=== PATIENT | male | born 2000 | race Caucasian/White ===

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

== ENCOUNTER 2023-11-11 12:09 | Emergency (ER) | payer MEDICAID, OTHER, SELFPAY ==
[2023-11-11 12:23] VITALS: BP 114/72; PULSE 83; RESP 16; TEMP 36.9; O2SAT 99; BMI 18.9
[2023-11-11 12:59] LABS: Add Manual Diff / Slide Review NO; Basophils Absolute Auto 0 /uL (0-100); Basophils Percent Auto 0.5 % (0-2); Eosinophils Absolute Auto 100 /uL (0-450); Eosinophils Percent Auto 0.9 % (2-4); Hematocrit 43.3 % (41-53); Hemoglobin 14.8 g/dL (13.5-17.5); Lymphocytes Absolute Auto 1400 /uL (1100-4500); Lymphocytes Percent Auto 16.5 % (25-40); Mean Corpuscular HGB Conc 34.1 % (30-36); Mean Corpuscular Hemoglobin 32.2 PG (26-34); Mean Corpuscular Volume 94.5 fL (80-100); Monocytes Absolute Auto 600 /uL (0-900); Monocytes Percent Auto 6.9 % (3-14); Neutrophils Absolute Auto 6200 /uL (1500-7000); Neutrophils Percent Auto 75.2 % (50-75); Platelet Count 141 X10^3/uL (150-400); Red Blood Cell Count 4.58 X10^6/uL (4.5-5.9); Red Cell Distribution Width 13.5 % (11.6-14.8); White Blood Cell Count 8.3 X10^3/uL (4.5-11.0)
--- NOTE | 2023-11-11 13:00 | DI.RAD.S_ITS ---
PROCEDURE: XR ABDOMEN 1V INDICATIONS: abd pain TECHNIQUE: One view of the abdomen acquired. COMPARISON: None. FINDINGS: Surgical changes and devices: None. Bowel: Bowel gas pattern is normal. Soft tissues: No suspicious abdominal calcifications. Visualized solid organ contours appear normal in size. Bones: No suspicious bony lesions. IMPRESSION: No acute abnormality. Dictated by: Raffaele Villatoro M.D. on 11/11/2023 at 13:13 Approved by: Raffaele Villatoro M.D. on 11/11/2023 at 13:13
--- NOTE | 2023-11-11 13:02 | ED_ITS ---
HPI - General Adult General Chief complaint: Abdominal Pain Stated complaint: abd pain, vomiting, feeling faint, blood in stool Time Seen by Provider: 11/11/23 12:41 Source: patient Mode of arrival: Ambulatory History of Present Illness HPI narrative: Patient is a 23-year-old male who is here for evaluation of abdominal pain, vomiting, feeling faint, blood in his stool. He states that this has been going on for months now. The has had a diagnosis of IBS. Has also had colonoscopy. Has a has been told that everything was okay. Not on any medicines for his discomfort. He was here because of the continued discomfort in worsening over the past 24 hours. Related Data Previous Rx's Medication Instructions Recorded metoclopramide HCl 10 mg tablet 10 mg PO Q6H PRN nausea and 11/29/21 (Reglan) vomiting #20 tabs Allergies Allergy/AdvReac Type Severity Reaction Status Date / Time No Known Drug Allergies Allergy Verified 11/11/23 12:27 Review of Systems Review of Systems ROS Unobtainable: All systems reviewed & are unremarkable except as noted in HPI and below Patient History Social History Smoking Status: Current every day smoker Smoking Status: Current every day smoker tobacco type: cigarettes alcohol intake frequency: holidays/special occasions only Substance Use Type: marijuana Exam Initial Vital Signs Initial Vital Signs: Vital Signs Temperature 98.4 F 11/11/23 12:23 Pulse Rate 83 11/11/23 12:23 Respiratory Rate 16 11/11/23 12:23 Blood Pressure 114/72 11/11/23 12:23 Pulse Oximetry 99 11/11/23 12:23 Oxygen Delivery Method Room Air 11/11/23 12:23 Const General: cooperative, comfortable and No ill appearing [facility] Head: normal to inspection and normocephalic Resp Effort & Inspection: normal respiratory effort Auscultation: clear to auscultation bilaterally Cardio Rate: regular rate Rhythm: regular rhythm GI Inspection: normal to inspection and non-distended Palpation: soft, No firm and No tender Skin General: no rashes or lesions noted Neuro General: patient alert and patient awake Course Orders Ordered: ED Orders 11/11/23 12:35 Urine Microscopic Stat 11/11/23 12:52 Complete Blood Count AUTO DIFF Stat Comprehensive Metabolic Panel Stat Lipase Stat 11/11/23 13:00 XR abdomen 1V Stat Ondansetron HCl (Ondansetron 4 Mg/2 Ml Inj) 4 mg IV NOW PRN PRN Reason: Nausea And Vomiting Ondansetron HCl (Ondansetron 4 Mg Odt) 4 mg PO NOW PRN PRN Reason: Nausea And Vomiting Vital Signs Vital signs: Vital Signs - 8 hr 11/11/23 12:23 Temperature 98.4 F Pulse Rate 83 Respiratory Rate 16 Blood Pressure 114/72 Pulse Oximetry 99 Oxygen Delivery Method Room Air Medical Decision Making Lab Data Lab results reviewed: Yes I reviewed the patient's lab results. 11/11/23 12:52 11/11/23 12:52 Labs: Lab Results 11/11/23 11/11/23 Range/Units 12:35 12:52 WBC 8.3 (4.5-11.0) X10^3/uL RBC 4.58 (4.5-5.9) X10^6/uL Hgb 14.8 (13.5-17.5) g/dL Hct 43.3 (41-53) % MCV 94.5 (80-100) fL MCH 32.2 (26-34) PG MCHC 34.1 (30-36) % RDW 13.5 (11.6-14.8) % Plt Count 141 L (150-400) X10^3/uL Neut % (Auto) 75.2 H (50-75) % Lymph % (Auto) 16.5 L (25-40) % [place] % (Auto) 6.9 (3-14) % Eos % (Auto) 0.9 L (2-4) % Baso % (Auto) 0.5 (0-2) % Neut # (Auto) 6200 (2913-8033) /uL Lymph # (Auto) 1400 (7553-4367) /uL [place] # (Auto) 600 (0-900) /uL Eos # (Auto) 100 (0-450) /uL Baso # (Auto) 0 (0-100) /uL Sodium 139 (137-145) mmol/L Potassium 4.0 (3.4-5.1) mmol/L Chloride 106 (98-107) mmol/L Carbon Dioxide 24 (22-32) mmol/L BUN 11 (9-20) mg/dL Creatinine 0.82 (0.66-1.25) mg/dL Estimated GFR > 60 (>60) mL/min BUN/Creatinine Ratio 13.4 (6-22) Glucose 107 H (70-100) mg/dL Calcium 9.6 (8.4-10.2) mg/dL Total Bilirubin 1.2 (0.2-1.3) mg/dL AST 21 (17-59) IU/L ALT 15 (<50) IU/L Alkaline Phosphatase 77 (38-126) U/L Total Protein 7.5 (6.3-8.2) g/dL Albumin 4.9 (3.5-5.0) g/dL Globulin 2.6 (1.7-4.1) g/dL Albumin/Globulin Ratio 1.9 (1.0-2.8) Lipase 43 (23-300) U/L Urine RBC None seen (0-5/HPF) Urine WBC None seen (0-5/HPF) Ur Squamous Epith Cells None seen (0-5/HPF) Urine Bacteria None seen (None) Ur Culture Indicated? Cult not indicated Vol Urine Centrifuged 10ml (spun) Urine Dip Bedside Urine Glucose Negative Bedside Urine Bilirubin - Negative Bedside Urine Ketone - Negative Urine Specific [place] 1.005 Bedside Urine Occult Blood +/- Bedside Urine pH 6.0 Bedside Urine Protein - Negative Bedside Urine Urobilinogen - Negative Bedside Urine Nitrite - Negative Bedside Urine Leukocytes - Negative Esterase Point of care testing: Urine Dip Bedside Urine Glucose Negative Bedside Urine Bilirubin - Negative Bedside Urine Ketone - Negative Urine Specific [place] 1.005 Bedside Urine Occult Blood +/- Bedside Urine pH 6.0 Bedside Urine Protein - Negative Bedside Urine Urobilinogen - Negative Bedside Urine Nitrite - Negative Bedside Urine Leukocytes - Negative Esterase Imaging Data Abdominal x-ray: Radiologist's Impression: PROCEDURE: XR ABDOMEN 1V INDICATIONS: abd pain TECHNIQUE: One view of the abdomen acquired. COMPARISON: None. FINDINGS: Surgical changes and devices: None. Bowel: Bowel gas pattern is normal. Soft tissues: No suspicious abdominal calcifications. Visualized solid organ contours appear normal in size. Bones: No suspicious bony lesions. IMPRESSION: No acute abnormality. MDM Narrative Medical decision making narrative: Patient has a benign exam. Negative x-ray, unremarkable labs. Has had symptoms for months if not longer. Has been followed by GI. No indication for advanced imaging today as I have low suspicion for an acute intra-abdominal issue such as appendicitis or bowel obstruction. Advised the patient that it would be best if he contact his primary doctor and also his GI doctor for follow-up. He was given return precautions. Discharge Plan Departure Patient Disposition: Home Clinical Impression: Abdominal pain Instructions: DI for Abdominal Pain-Adult Activity Restrictions/Additional Instructions: Workup here in the emergency department today is very reassuring. I recommend that you contact your primary doctor and your GI doctor for a follow-up. Prescriptions: No Action metoclopramide HCl [Reglan] 10 mg tablet 10 mg PO Q6H PRN (Reason: nausea and vomiting) Qty: 20 0RF Stand Alone Forms: Patient Portal/API
[2023-11-11 13:06] LABS: Urine Volume 10mL (spun)
[2023-11-11 13:07] LABS: Bacteria Urine None Seen; Culture Indicated Urine Cult Not Indicated; RBC Urine None Seen (0-5/HPF); Squamous Epithelial Cell Urine None Seen (0-5/HPF); WBC Urine None Seen (0-5/HPF)
[2023-11-11 13:33] LABS: Alanine Aminotransferase 15 IU/L (<50); Albumin 4.9 g/dL (3.5-5.0); Albumin Globulin Ratio 1.9 (1.0-2.8); Alkaline Phosphatase 77 U/L (38-126); Aspartate Aminotransferase 21 IU/L (17-59); BUN Creatinine Ratio 13.4 (6-22); Bilirubin Total 1.2 mg/dL (0.2-1.3); Blood Urea Nitrogen 11 mg/dL (9-20); Calcium 9.6 mg/dL (8.4-10.2); Carbon Dioxide 24 mmol/L (22-32); Chloride 106 mmol/L (98-107); Estimated Glomerular Filt Rate > 60 mL/min (>60); Globulin 2.6 g/dL (1.7-4.1); Glucose 107 mg/dL (70-100); HEMOLYSIS < 15 (0-50); Lipase 43 U/L (23-300); Sodium 139 mmol/L (137-145); Total Protein 7.5 g/dL (6.3-8.2)
[2023-11-11 14:33] VITALS: BP 119/70; PULSE 62; O2SAT 100
== END 2023-11-11 14:33 | disposition home or self-care (01) ==
PROVIDERS: Emergency Provider Emergency Medicine
DX: R10.9 Unspecified abdominal pain (principal)
CPT/HCPCS: 36415; 74018; 80053; 81003; 81015; 83690; 85025; 99284

== ENCOUNTER 2024-01-20 11:15 | Emergency (ER) | payer OTHER, MEDICAID, SELFPAY ==
[2024-01-20 11:18] VITALS: BP 143/64; PULSE 81; RESP 16; TEMP 37.1; O2SAT 98; BMI 18.6
--- NOTE | 2024-01-20 11:31 | DI.RAD.S_ITS ---
PROCEDURE: XR WRIST LT MIN 3V INDICATIONS: Punched the floor TECHNIQUE: A total of 4 views of the wrist were acquired. COMPARISON: None. FINDINGS: Bones: No fractures or dislocations. No suspicious bony lesions. Soft tissues: No suspicious soft tissue calcifications. IMPRESSION: No acute bony abnormality. Dictated by: Levi Kunz M.D. on 01/20/2024 at 12:10 Approved by: Levi Kunz M.D. on 01/20/2024 at 12:11
--- NOTE | 2024-01-20 11:32 | ED_ITS ---
HPI - Extremity Injury (Upper) <Brenda Overton PA-C - Last Filed: 01/20/24 12:32> General Chief Complaint: Extremity Injury, Upper Stated Complaint: Says he Broke his left hand Time Seen by Provider: 01/20/24 11:29 Source: patient Mode of arrival: Ambulatory History of Present Illness HPI narrative: Patient is a very pleasant 23 year male right-hand dominant who presents to the emergency department with a sudden onset of left hand pain about 20 minutes prior to being seen in the emergency room department after he punched the floor. Patient is tearful, he is emotional, currently he is stating that people sec, he states that his family practice doctor will not get him a therapist. He obviously is going through some emotional issues currently at this point in time. No treatment prior to being seen here in the emergency department. No other physical complaints. Related Data Previous Rx's Medication Instructions Recorded metoclopramide HCl 10 mg tablet 10 mg PO Q6H PRN nausea and 11/29/21 (Reglan) vomiting #20 tabs Allergies Allergy/AdvReac Type Severity Reaction Status Date / Time No Known Drug Allergies Allergy Verified 01/20/24 11:30 Review of Systems <Brenda Overton PA-C - Last Filed: 01/20/24 12:32> Review of Systems Narrative: Negative except as above Musculoskeletal Comments: Left hand and wrist pain. Patient History <Brenda Overton PA-C - Last Filed: 01/20/24 12:32> Social History Smoking Status: Current every day smoker Smoking Status: Current every day smoker tobacco type: cigarettes alcohol intake frequency: holidays/special occasions only Substance Use Type: marijuana Exam <Brenda Overton PA-C - Last Filed: 01/20/24 12:32> Initial Vital Signs Initial Vital Signs: Vital Signs Temperature 98.8 F 01/20/24 11:18 Pulse Rate 81 01/20/24 11:18 Respiratory Rate 16 01/20/24 11:18 Blood Pressure 143/64 H 01/20/24 11:18 Pulse Oximetry 98 01/20/24 11:18 Oxygen Delivery Method Room Air 01/20/24 11:18 Reviewed Const General: cooperative, healthy appearing, comfortable, well developed, well groomed, in distress (Patient extremely emotional) and anxious Eyes General: Yes appearance normal, both eyes and all related structures Pupils: PERRL EOM: EOM intact bilaterally Skin Other: Warm pink and dry, pulses are present, cap refill is preserved. No ecchymosis noted at this time. No soft tissue swelling noted this time. Neuro General: patient alert, patient awake, patient oriented x3, oriented and gait normal Cognition: normal cognition Speech: speech normal Gait: normal gait Motor: muscle tone normal throughout Extrem Other: Lower extremities and right upper extremities range of motion, strength, pulses, cap refill is preserved in the upper and lower extremities. Left upper extremity shoulder humerus elbow and forearm no obvious deformities, no pain, patient states that he has pain in the left wrist, left thumb, and the left pinky and left 5th metacarpal area after striking a floor by punching it. There is no obvious deformity. Cap refill is preserved. Pulses are present. Limited range of motion due to discomfort, pain. No substantial soft tissue swelling is noted. <Felicia Cornejo DO - Last Filed: 01/21/24 08:42> Initial Vital Signs Initial Vital Signs: Vital Signs Temperature 98.8 F 01/20/24 11:18 Pulse Rate 81 01/20/24 11:18 Respiratory Rate 16 01/20/24 11:18 Blood Pressure 143/64 H 01/20/24 11:18 Pulse Oximetry 98 01/20/24 11:18 Oxygen Delivery Method Room Air 01/20/24 11:18 Course <Brenda Overton PA-C - Last Filed: 01/20/24 12:32> Orders Ordered: Discontinued Medications Acetaminophen (Acetaminophen 325 Mg Tablet) 650 mg PO NOW ONE Stop: 01/20/24 11:32 Last Admin: 01/20/24 11:44 Dose: 650 mg Documented By: DANIEL Vital Signs Vital signs: Vital Signs - 8 hr 01/20/24 11:18 Temperature 98.8 F Pulse Rate 81 Respiratory Rate 16 Blood Pressure 143/64 H Pulse Oximetry 98 Oxygen Delivery Method Room Air Reviewed <Felicia Cornejo DO - Last Filed: 01/21/24 08:42> Orders Ordered: Discontinued Medications Acetaminophen (Acetaminophen 325 Mg Tablet) 650 mg PO NOW ONE Stop: 01/20/24 11:32 Last Admin: 01/20/24 11:44 Dose: 650 mg Documented By: DANIEL Vital Signs Vital signs: Vital Signs - 8 hr 01/20/24 11:18 Temperature 98.8 F Pulse Rate 81 Respiratory Rate 16 Blood Pressure 143/64 H Pulse Oximetry 98 Oxygen Delivery Method Room Air MDM - Extremity Injury (Upper) <Brenda Overton PA-C - Last Filed: 01/20/24 12:32> Imaging Data Hand and wrist x-ray left: My Impression: No acute abnormalities are noted on the left hand and left wrist x-rays. No acute fractures are noted, no major soft tissue swelling is noted on x-rays. Extremity x-ray #1: Radiologist's Impression: [address] [address] XRay Report Signed Patient: Byron Contreras MR#: [id number] : 2000 Acct:[id number] Age/Sex: 23 / M Date of Service: 01/20/24 Loc: ED Accession Number: [id number] Procedure: XR hand LT min 3V Ordering Provider: Brenda Overton PA-C PROCEDURE: XR HAND LT MIN 3V INDICATIONS: Punched the floor TECHNIQUE: 3 views of the hand(s) acquired. COMPARISON: None. FINDINGS: Bones: No fractures or dislocations. Carpal bones are normally aligned. No suspicious bony lesions. Soft tissues: No suspicious soft tissue calcifications. IMPRESSION: No acute bony abnormality. Dictated by: Levi Kunz M.D. on 01/20/2024 at 12:11 Approved by: Levi Kunz M.D. on 01/20/2024 at 12:11 Extremity x-ray #2: Radiologist's Impression: [address] [address] XRay Report Signed Patient: Byron Contreras MR#: [id number] : 2000 Acct:[id number] Age/Sex: 23 / M Date of Service: 01/20/24 Loc: ED Accession Number: [id number] Procedure: XR hand LT min 3V Ordering Provider: Brenda Overton PA-C PROCEDURE: XR HAND LT MIN 3V INDICATIONS: Punched the floor TECHNIQUE: 3 views of the hand(s) acquired. COMPARISON: None. FINDINGS: Bones: No fractures or dislocations. Carpal bones are normally aligned. No suspicious bony lesions. Soft tissues: No suspicious soft tissue calcifications. IMPRESSION: No acute bony abnormality. Dictated by: Levi Kunz M.D. on 01/20/2024 at 12:11 Approved by: Levi Kunz M.D. on 01/20/2024 at 12:11 [facility] Narrative Medical decision making narrative: Pleasant 23-year-old male presents to the emergency department left hand and wrist pain after punching a floor. Patient struck the floor due to emotional distress. He currently obviously is going through something, unknown cause of his distress. However the patient did not strike someone which is a good thing, however he did punch a floor. He presents with left hand pain. 650 mg of p.o. Tylenol Portable x-ray left hand Left wrist All x-rays are negative, hand is wrapped in a Jamil wrap, patient is discharged. Differential diagnosis; left hand and wrist contusion, possible fracture, left hand and wrist sprain, strain. Discharge Plan Departure Patient Disposition: Home Clinical Impression: Contusion of hand Qualifiers: Encounter type: initial encounter Laterality: left Qualified Code(s): S60.222A - Contusion of left hand, initial encounter Sprain of hand Qualifiers: Encounter type: initial encounter Laterality: left Qualified Code(s): S63.92XA - Sprain of unspecified part of left wrist and hand, initial encounter Activity Restrictions/Additional Instructions: Elevate, rest, ice, compression. [id number] ibuprofen or Tylenol for discomfort and pain. Prescriptions: No Action metoclopramide HCl [Reglan] 10 mg tablet 10 mg PO Q6H PRN (Reason: nausea and vomiting) Qty: 20 0RF Stand Alone Forms: Patient Portal/API ED Sign-out <Felicia Cornejo DO - Last Filed: 01/21/24 08:42> Cosign ED Attending Cosignature Attestation: I was available for consultation.
[2024-01-20] MEDS: ACETAMINOPHEN 325 MG TABLET 650 MG PO (11:44)
== END 2024-01-20 12:43 | disposition home or self-care (01) ==
PROVIDERS: Emergency Provider Physician Assistant
DX: S60.222A Contusion of left hand, initial encounter (principal); S63.92XA Sprain of unspecified part of left wrist and hand, initial encounter; W22.8XXA Striking against or struck by other objects, initial encounter
CPT/HCPCS: 73110; 73130; 99283

== ENCOUNTER 2024-02-20 10:41 | Emergency (ER) | payer OTHER, MEDICAID, SELFPAY ==
[2024-02-20] VITALS (10 sets, daily range): BP systolic 99–167; BP diastolic 50–64; PULSE 50–84; RESP 11–41; TEMP 36.6; O2SAT 97–100; BMI 17.9
--- NOTE | 2024-02-20 11:00 | EKG_ITS ---
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
--- NOTE | 2024-02-20 12:04 | DI.US.S_ITS ---
PROCEDURE: US ABDOMEN LIMITED INDICATIONS: RUQ pain, ? gallstones TECHNIQUE: Real-time focused scanning was performed of the abdomen, with image documentation. COMPARISON: [facility], CT, CT ABDOMEN PELVIS W CON, 11/29/2021, 11:11. FINDINGS: The liver is normal in size and demonstrates no suspicious lesions. The main portal vein demonstrates normal size and demonstrates normal appearing, hepatopetal flow. No findings of gallstones or sludge are seen. The gallbladder wall is not thickened, measuring 3 mm or less. No specific pericholecystic fluid is seen. The sonographic Hughes sign is negative. There is no biliary dilatation, the common bile duct measures 4 mm. No significant pancreatic abnormality is seen on these images. IMPRESSION: No gallstones. Normal appearing gallbladder. No biliary dilatation. Dictated by: Andrew Ballard M.D. on 02/20/2024 at 12:28 Approved by: Andrew Ballard M.D. on 02/20/2024 at 12:29
[2024-02-20 12:42] LABS: Add Manual Diff / Slide Review NO; Basophils Absolute Auto 0 /uL (0-100); Basophils Percent Auto 0.6 % (0-2); Eosinophils Absolute Auto 200 /uL (0-450); Eosinophils Percent Auto 3.1 % (2-4); Hematocrit 45.5 % (41-53); Hemoglobin 15.6 g/dL (13.5-17.5); Lymphocytes Absolute Auto 1600 /uL (1100-4500); Lymphocytes Percent Auto 21.8 % (25-40); Mean Corpuscular HGB Conc 34.3 % (30-36); Mean Corpuscular Hemoglobin 32.3 PG (26-34); Mean Corpuscular Volume 94.3 fL (80-100); Monocytes Absolute Auto 500 /uL (0-900); Monocytes Percent Auto 7.5 % (3-14); Neutrophils Absolute Auto 4800 /uL (1500-7000); Platelet Count 154 X10^3/uL (150-400); Red Blood Cell Count 4.83 X10^6/uL (4.5-5.9); Red Cell Distribution Width 12.9 % (11.6-14.8); White Blood Cell Count 7.2 X10^3/uL (4.5-11.0)
[2024-02-20 12:52] LABS: Alanine Aminotransferase 14 IU/L (<50); Albumin 4.8 g/dL (3.5-5.0); Albumin Globulin Ratio 1.7 (1.0-2.8); Alkaline Phosphatase 71 U/L (38-126); Aspartate Aminotransferase 19 IU/L (17-59); BUN Creatinine Ratio 13.6 (6-22); Bilirubin Total 1.4 mg/dL (0.2-1.3); Blood Urea Nitrogen 11 mg/dL (9-20); Calcium 9.8 mg/dL (8.4-10.2); Carbon Dioxide 28 mmol/L (22-32); Chloride 105 mmol/L (98-107); Estimated Glomerular Filt Rate > 60 mL/min (>60); Globulin 2.8 g/dL (1.7-4.1); Glucose 94 mg/dL (70-100); HEMOLYSIS < 15 (0-50); Lipase 39 U/L (23-300); Potassium 4.1 mmol/L (3.4-5.1); Sodium 140 mmol/L (137-145); Total Protein 7.6 g/dL (6.3-8.2)
[2024-02-20 13:37] LABS: Bacteria Urine None Seen; Culture Indicated Urine Cult Not Indicated; RBC Urine None Seen (0-5/HPF); Squamous Epithelial Cell Urine None Seen (0-5/HPF); Urine Volume 10mL (spun); WBC Urine None Seen (0-5/HPF)
== END 2024-02-20 13:43 | disposition home or self-care (01) ==
PROVIDERS: Emergency Provider Emergency Medicine
DX: R10.10 Upper abdominal pain, unspecified (principal); R11.2 Nausea with vomiting, unspecified; R11.0 Nausea; R00.1 Bradycardia, unspecified; I49.8 Other specified cardiac arrhythmias
CPT/HCPCS: 36415; 76705; 80053; 81003; 81015; 83690; 85025; 93005; 99282; 99284

== ENCOUNTER 2024-07-01 09:38 | Emergency (ER) | payer OTHER, MEDICAID, SELFPAY ==
[2024-07-01 09:43] VITALS: BP 111/56; PULSE 61; RESP 18; TEMP 36.9; O2SAT 97; BMI 18.1
[2024-07-01 10:42] LABS: Add Manual Diff / Slide Review NO; Basophils Absolute Auto 100 /uL (0-100); Basophils Percent Auto 1.3 % (0-2); Eosinophils Absolute Auto 200 /uL (0-450); Eosinophils Percent Auto 3.2 % (2-4); Hematocrit 43.4 % (41-53); Hemoglobin 14.6 g/dL (13.5-17.5); Lymphocytes Absolute Auto 1700 /uL (1100-4500); Lymphocytes Percent Auto 23.4 % (25-40); Mean Corpuscular HGB Conc 33.5 % (30-36); Mean Corpuscular Hemoglobin 31.5 PG (26-34); Mean Corpuscular Volume 93.8 fL (80-100); Monocytes Absolute Auto 500 /uL (0-900); Monocytes Percent Auto 6.6 % (3-14); Neutrophils Absolute Auto 4900 /uL (1500-7000); Neutrophils Percent Auto 65.5 % (50-75); Platelet Count 162 X10^3/uL (150-400); Red Blood Cell Count 4.63 X10^6/uL (4.5-5.9); Red Cell Distribution Width 13.2 % (11.6-14.8); White Blood Cell Count 7.4 X10^3/uL (4.5-11.0)
[2024-07-01 10:56] LABS: Bacteria Urine Occasional (0-1); Culture Indicated Urine Cult Not Indicated; RBC Urine 0-1/HPF (0-5/HPF); Squamous Epithelial Cell Urine 0-1 /HPF (0-5/HPF); Urine Volume 10mL (spun); WBC Urine 0-1/HPF (0-5/HPF)
--- NOTE | 2024-07-01 11:03 | ED.ABDPAIN ---
HPI - Abdominal Pain General Chief Complaint: Abdominal Pain Stated Complaint: right sided abd pain white stools Time Seen by Provider: 07/01/24 10:53 Source: patient Mode of arrival: Family Vehicle History of Present Illness HPI narrative: 23-year-old male history of prior kidney stones presents with complaint of right-sided abdominal pain for the past 3 days. Patient states he has had nausea although he states that is fairly normal for him he has a prescription for promethazine he takes as needed. Patient states no back or flank pain. He states it feels different than when he had kidney stones in the past. He denies any dysuria, urgency or frequency. No hematuria. Patient notes that he had sort of a whitish greenish stool although when he shows a picture is not mandie colored or white in appearance. Patient has not had any bright red blood or melanotic stools. No diarrhea he describes it as being a little bit softer. Patient states has had prior kidney stones. Has not had any prior surgeries. He was not on any daily prescription medications. Denies any drug allergies. Does vape regularly. Occasional alcohol, uses marijuana denies any other recreational or IV drugs. Related Data Previous Rx's Medication Instructions Recorded metoclopramide HCl 10 mg tablet 10 mg PO Q6H PRN nausea and 11/29/21 (Reglan) vomiting #20 tabs metoclopramide HCl 10 mg tablet 10 mg PO Q6H PRN nausea and 02/20/24 vomiting #30 tabs omeprazole 40 mg capsule,delayed 40 mg PO DAILY #30 caps 02/20/24 release promethazine 25 mg tablet 25 mg PO TID PRN nausea and 02/20/24 vomiting #30 tabs amoxicillin 875 mg-potassium 1 tab PO BID #10 tabs 07/01/24 clavulanate 125 mg tablet Allergies Allergy/AdvReac Type Severity Reaction Status Date / Time No Known Drug Allergies Allergy Verified 07/01/24 09:52 Review of Systems Review of Systems ROS Unobtainable: All systems reviewed & are unremarkable except as noted in HPI and below Patient History Social History details: lives with parents household members: family Smoking Status: Current every day smoker substance use type: marijuana Smoking Status: Current every day smoker tobacco type: cigarettes and vaping alcohol intake frequency: holidays/special occasions only Exam Narrative Exam Narrative: GENERAL: Alert and oriented x three, tall, thin male in mild distress HEENT: Head normocephalic, atraumatic, EOMI, pupils reactive, face symmetric, moist mucous membranes NECK: Supple, full range of motion CARDIOVASCULAR: Regular rate and rhythm without murmurs, rubs or gallops. RESPIRATORY: Breath sounds equal bilaterally, no wheezes rales or rhonchi. ABDOMEN: Soft, positive for right lower quadrant pain. Normoactive bowel sounds all 4 quadrants. No guarding or rebound, rigidity, no mass, pulsatile mass or bruit : No CVA tenderness bilaterally EXTREMITIES: Normal range of motion, no clubbing or edema. Neurovascularly intact NEUROLOGICAL: Cranial nerves II through XII grossly intact. Moving all extremities SKIN: Warm, dry, no petechiae, no rashes or lesions. Initial Vital Signs Initial Vital Signs: Vital Signs Temperature 98.4 F 07/01/24 09:43 Pulse Rate 61 07/01/24 09:43 Respiratory Rate 18 07/01/24 09:43 Blood Pressure 111/56 L 07/01/24 09:43 Pulse Oximetry 97 07/01/24 09:43 Oxygen Delivery Method Room Air 07/01/24 09:43 Course Orders Ordered: ED Orders 07/01/24 10:00 GI Panel (Film Array) Stat Urine Microscopic Stat 07/01/24 10:30 Complete Blood Count AUTO DIFF Stat Comprehensive Metabolic Panel Stat Lipase Stat 07/01/24 11:22 Urinalysis Screen (Dip Only) Stat 07/01/24 11:30 US abdomen limited Stat Discontinued Medications Piperacillin Sod/Tazobactam (Sod 4.5 gm/ Sodium Chloride) 100 mls @ 200 mls/hr IV NOW ONE Stop: 07/01/24 12:28 Last Admin: 07/01/24 12:43 Dose: 200 mls/hr Documented By: Ondansetron HCl (Ondansetron 4 Mg/2 Ml Inj) 4 mg IV NOW PRN PRN Reason: Nausea And Vomiting Ondansetron HCl (Ondansetron 4 Mg Odt) 4 mg PO NOW PRN PRN Reason: Nausea And Vomiting Vital Signs Vital signs: Vital Signs - 8 hr 07/01/24 12:17 07/01/24 13:00 Temperature 98.4 F Pulse Rate 69 66 Respiratory Rate 16 16 Blood Pressure 125/78 132/78 Pulse Oximetry 98 98 Oxygen Delivery Method Room Air Room Air MDM - Abdominal Pain Lab Data 07/01/24 10:30 07/01/24 10:30 Labs: Lab Results 07/01/24 07/01/24 Range/Units 10:00 10:30 WBC 7.4 (4.5-11.0) X10^3/uL RBC 4.63 (4.5-5.9) X10^6/uL Hgb 14.6 (13.5-17.5) g/dL Hct 43.4 (41-53) % MCV 93.8 (80-100) fL MCH 31.5 (26-34) PG MCHC 33.5 (30-36) % RDW 13.2 (11.6-14.8) % Plt Count 162 (150-400) X10^3/uL Neut % (Auto) 65.5 (50-75) % Lymph % (Auto) 23.4 L (25-40) % [place] % (Auto) 6.6 (3-14) % Eos % (Auto) 3.2 (2-4) % Baso % (Auto) 1.3 (0-2) % Neut # (Auto) 4900 (1965-2140) /uL Lymph # (Auto) 1700 (3613-2285) /uL [place] # (Auto) 500 (0-900) /uL Eos # (Auto) 200 (0-450) /uL Baso # (Auto) 100 (0-100) /uL Sodium 139 (137-145) mmol/L Potassium 4.2 (3.4-5.1) mmol/L Chloride 103 (98-107) mmol/L Carbon Dioxide 27 (22-32) mmol/L BUN 11 (9-20) mg/dL Creatinine 0.87 (0.66-1.25) mg/dL Estimated GFR > 60 (>60) mL/min BUN/Creatinine Ratio 12.6 (6-22) Glucose 107 H (70-100) mg/dL Calcium 9.4 (8.4-10.2) mg/dL Total Bilirubin 0.8 (0.2-1.3) mg/dL AST 23 (17-59) IU/L ALT 16 (<50) IU/L Alkaline Phosphatase 66 (38-126) U/L Total Protein 7.8 (6.3-8.2) g/dL Albumin 4.9 (3.5-5.0) g/dL Globulin 2.9 (1.7-4.1) g/dL Albumin/Globulin Ratio 1.7 (1.0-2.8) Lipase 61 (23-300) U/L Urine Color Yellow Urine Appearance Clear Urine pH 7.0 (4.5-8.0) Ur Specific [place] <=1.005 (1.000-1.035) Urine Protein Negative (Negative) Urine Glucose (UA) Negative (Negative) g/dL Urine Ketones Negative (NEGATIVE) Urine Occult Blood Negative (Negative) Urine Nitrate Negative (Negative) Urine Bilirubin Negative (NEGATIVE) Urine Urobilinogen 0.2 (0.2) E.U./dL Ur Leukocyte Esterase Negative (NEGATIVE) Urine RBC 0-1/hpf (0-5/HPF) Urine WBC 0-1/hpf (0-5/HPF) Ur Squamous Epith Cells 0-1 /hpf (0-5/HPF) Urine Bacteria Occasional (0-1) (None) Ur Culture Indicated? Cult not indicated Vol Urine Centrifuged 10ml (spun) Stl C. cayetanensis PCR Not detected (Not Detect) Stool Rotavirus (PCR) Not detected (Not Detect) Stool Adenovirus (PCR) Not detected (Not Detect) Stool Astrovirus (PCR) Not detected (Not Detect) Stool Cryptosporidium PCR Not detected (Not Detect) Stl E.coli Shiga Tox PCR Not detected (Not Detect) St Sh/Enteroin Ecoli PCR Not detected (Not Detect) Stl Enterotoxigenic E PCR Not detected (Not Detect) Stool EPEC (PCR) Not detected (Not Detect) Stl E. histolytica PCR Not detected (Not Detect) Stool Giardia Lamblia PCR Not detected (Not Detect) Stool Sapovirus (PCR) Not detected (Not Detect) Stl P. shigelloides PCR Not detected (Not Detect) St Y.enterocolitica PCR Not detected (Not Detect) Stool Vibrio (PCR) Not detected (Not Detect) Stl Vibrio cholerae PCR Not detected (Not Detect) Stl Enteroaggr Ecoli PCR Not detected (Not Detect) Stl Norovirus GI/GII PCR Not detected (Not Detect) Campylobacter (PCR) Not detected (Not Detect) C. difficile Tox (PCR) Not detected (Not Detect) Salmonella (PCR) Not detected (Not Detect) MDM Narrative Medical decision making narrative: 23 year old male with complaint of right sided abdominal pain, on exam patient is tender if RLQ. Discussed labs pending, urine is negative. Discussed will obtain US to rule out appendicitis. If unable to visualize will obtain CT imaging. Labs show normal white count, hemoglobin and platelets. Chemistries CA appropriate glucose is 127 LFTs are negative lipase is 61. Urine shows 1 RBC 1 WBC 1 squamous 1 bacteria. urine dip is negative. GI panel is negative. abd US prelim report is positive for appendicitis. Noncompressible blind ending tubular structure with bowel signature overlying the iliac vessels measures 7 mm in diameter wall thickness of 2 mm in intraluminal fluid depth of 2.8 mm with a intraluminal appendicolith. No associated right lower quadrant lymphadenopathy or free fluid no echogenic fat present. Findings are equivocal for appendicitis although the intraluminal fluid depth and appendicolith are abnormal and correlates with the area of patient's pain Patient given zosyn for suspected appendicitis. Patient is NPO. Call out to Dr. Antonio, general surgery @ [phone]. He reviewed images, does not wish for CT. Asks if we can speak with the patient if they would like to have their appendix removed Recontact @ [phone], patient states that he would like to talk with Dr. Antonio after we reviewed that his imaging were somewhat equivocal but there are concerns for appendicitis. Patient states he would like to talk to Dr. Antonio about having his appendix out. Dr. Antonio saw patient in the department. After discussion with the patient decision is made to hold off on surgery. Recommends coverage with Augmentin or cephalexin plus Flagyl for 5 days with return precautions for the patient. Reviewed all of this with the patient. Discussed return precautions all questions answered. Discharge Plan Departure Patient Disposition: Home Clinical Impression: Abdominal pain, acute, right lower quadrant, Appendicolith Instructions: DI for Appendicitis -- Adult Activity Restrictions/Additional Instructions: Your workup today showed some changes consistent with a appendicitis but your imaging was equivocal. You met with the general surgeon and after discussion decided not to surgical treatment for potential appendicitis. Take oral antibiotics until completed. [facility] in [place]. You can take acetaminophen and/or ibuprofen as needed for pain. Please return for fevers, rapidly worsening pain, vomiting, black or bloody stools, lightheadedness or passing out or other new or concerning changes. Prescriptions: New amoxicillin-pot clavulanate 875-125 mg tablet 1 tab PO BID Qty: 10 0RF No Action metoclopramide HCl [Reglan] 10 mg tablet 10 mg PO Q6H PRN (Reason: nausea and vomiting) Qty: 20 0RF omeprazole 40 mg capsule,delayed release(DR/EC) 40 mg PO DAILY Qty: 30 0RF metoclopramide HCl 10 mg tablet 10 mg PO Q6H PRN (Reason: nausea and vomiting) Qty: 30 0RF promethazine 25 mg tablet 25 mg PO TID PRN (Reason: nausea and vomiting) Qty: 30 0RF Referrals: Zach Antonio MD [Physician] - Stand Alone Forms: Patient Portal/API/Survey
[2024-07-01 11:25] LABS: Alanine Aminotransferase 16 IU/L (<50); Albumin 4.9 g/dL (3.5-5.0); Albumin Globulin Ratio 1.7 (1.0-2.8); Alkaline Phosphatase 66 U/L (38-126); Aspartate Aminotransferase 23 IU/L (17-59); BUN Creatinine Ratio 12.6 (6-22); Bilirubin Total 0.8 mg/dL (0.2-1.3); Blood Urea Nitrogen 11 mg/dL (9-20); Calcium 9.4 mg/dL (8.4-10.2); Carbon Dioxide 27 mmol/L (22-32); Chloride 103 mmol/L (98-107); Estimated Glomerular Filt Rate > 60 mL/min (>60); Globulin 2.9 g/dL (1.7-4.1); Glucose 107 mg/dL (70-100); HEMOLYSIS 15 (0-50); Lipase 61 U/L (23-300); Potassium 4.2 mmol/L (3.4-5.1); Sodium 139 mmol/L (137-145); Total Protein 7.8 g/dL (6.3-8.2)
--- NOTE | 2024-07-01 11:30 | DI.US.S_ITS ---
PROCEDURE: US ABDOMEN LIMITED INDICATIONS: RLQ pain, appy? TECHNIQUE: Real-time scanning was performed of the abdominal and retroperitoneal organs, with image documentation. COMPARISON: [facility], US, US ABDOMEN LIMITED, 02/20/2024, 12:40. FINDINGS: Targeted sonography of the right lower quadrant demonstrates a noncompressible blind-ending tubular structure with bowel signature overlying the iliac vessels. This structure measures 7 mm in diameter with a wall thickness of 2 mm in intraluminal fluid depth of 2.8 mm. There is an intraluminal appendicolith. There is no associated right lower quadrant lymphadenopathy or free fluid. No echogenic fat is present. IMPRESSION: Findings equivocal for appendicitis. The appendix is not significantly dilated and there are no secondary signs of appendicitis, but the intraluminal fluid depth and appendicolith are abnormal and this area correlates with the patient's pain. Dictated by: Dione Sanchez M.D. on 07/01/2024 at 11:33 Approved by: Dione Sanchez M.D. on 07/01/2024 at 11:40
[2024-07-01 11:33] LABS: Adenovirus F 40/41 Not Detected (Not Detect); Astrovirus Not Detected (Not Detect); Campylobacter Not Detected (Not Detect); Clostridium difficile toxin AB Not Detected (Not Detect); Cryptosporidium Not Detected (Not Detect); Cyclospora cayetanensis Not Detected (Not Detect); Entamoeba histolytica Not Detected (Not Detect); Enteroaggregative E.coli Not Detected (Not Detect); Enteropathogenic E.coli Not Detected (Not Detect); Enterotoxigenic E.coli It/st Not Detected (Not Detect); Giardia lamblia Not Detected (Not Detect); Norovirus GI/GII Not Detected (Not Detect); Plesiomonsa shigelloides Not Detected (Not Detect); Rotavirus A Not Detected (Not Detect); Salmonella Not Detected (Not Detect); Sapovirus Not Detected (Not Detect); Shiga-like toxin-prod E.coli Not Detected (Not Detect); Shigella/Enteroinvasive E.coli Not Detected (Not Detect); Vibrio Not Detected (Not Detect); Vibrio cholerae Not Detected (Not Detect); Yersinia enterocolitica Not Detected (Not Detect)
[2024-07-01 11:48] LABS: Appearance Urine UA Clear; Color Urine UA YELLOW; Specific Gravity Urine UA <=1.005 (1.000-1.035)
[2024-07-01 11:49] LABS: Bilirubin Urine UA NEGATIVE (NEGATIVE); Glucose Urine UA NEGATIVE (Negative); Ketones Urine UA NEGATIVE (NEGATIVE); Leukocyte Esterase Urine UA NEGATIVE (NEGATIVE); Nitrite Urine UA NEGATIVE (Negative); Occult Blood Urine UA NEGATIVE (Negative); Protein Urine UA Negative (Negative); Urobilinogen Urine UA 0.2 E.U./dL (0.2)
[2024-07-01 12:17] VITALS: BP 125/78; PULSE 69; RESP 16; O2SAT 98
[2024-07-01] MEDS: PIPERACILLIN/TAZO 4.5 GM in SODIUM CHLORIDE 0.9% 100 ML IV (12:43)
[2024-07-01 13:00] VITALS: BP 132/78; PULSE 66; RESP 16; TEMP 36.9; O2SAT 98
--- NOTE | 2024-07-01 13:28 | P.CONS_ITS ---
History of Present Illness Consult details Date Patient Seen: 07/01/24 Time Patient Seen: 13:29 Chief complaint: right sided abd pain white stools Reason for consult: possible appendicitis Requesting provider: Bri Henderson Narrative: 23-year-old white male with intermittent abdominal symptoms over the last 4 years at least. Two years ago he started having intermittent right lower quadrant pain. He had a CT scan in 2021 which was unremarkable. He had a right lower quadrant ultrasound last year which was unremarkable. He had an ultrasound today which shows a possible fecalith, but a normal-sized, fluid filled appendix. He did not notice any particular time of onset for the pain. Does not have any noticed any radiation of the pain, but it is located in the right lower quadrant. Denies any fevers or chills, no night sweats. His white blood cell count is normal. Meds Home Medications and Allergies Home Medications Medication Instructions Recorded Confirmed Type metoclopramide HCl 10 mg tablet 10 mg PO Q6H PRN nausea and 11/29/21 Rx (Reglan) vomiting #20 tabs metoclopramide HCl 10 mg tablet 10 mg PO Q6H PRN nausea and 02/20/24 Rx vomiting #30 tabs omeprazole 40 mg capsule,delayed 40 mg PO DAILY #30 caps 02/20/24 Rx release promethazine 25 mg tablet 25 mg PO TID PRN nausea and 02/20/24 Rx vomiting #30 tabs Allergies Allergy/AdvReac Type Severity Reaction Status Date / Time No Known Drug Allergies Allergy Verified 07/01/24 09:52 Exam Vital Signs (past 8 hours): - 07/01/24 09:43 07/01/24 12:17 Temperature 98.4 F Pulse Rate 61 69 Respiratory Rate 18 16 Blood Pressure 111/56 L 125/78 Pulse Oximetry 97 98 Oxygen Delivery Method Room Air Room Air Oxygen Delivery Method Room Air Narrative Exam Narrative: Gen: NAD, sitting comfortably in bed, appears well. Able to transition from lying to sitting without pain or discomfort. HEENT: Sclera are anicteric, head is normocephalic and atraumatic, trachea is midline. CV: RRR, no JVD Resp: clear to auscultation bilaterally, equal chest wall movement bilaterally Abd: soft, mildly tender in the right lower quadrant, negative Rovsing, no rebound or guarding, normoactive bowel sounds Ext: no edema, full range of motion Neuro: Cranial nerves II-XII grossly intact, no focal deficits Skin: No erythema or ecchymosis Objective Imaging US - abdomen: My impression: Ultrasound of the abdomen from today shows an appendix that does not appear to be enlarged without any free fluid, abscess or phlegmon within the limitations of the images provided. There may be a fecalith. I reviewed his CT scan images from 2021 which were normal as well as his ultrasound from last year which was normal. Labs 07/01/24 10:30 07/01/24 10:30 Labs: Laboratory Results - last 24 hr 07/01/24 07/01/24 10:00 10:30 WBC 7.4 RBC 4.63 Hgb 14.6 Hct 43.4 MCV 93.8 MCH 31.5 MCHC 33.5 RDW 13.2 Plt Count 162 Neut % (Auto) 65.5 Lymph % (Auto) 23.4 L [place] % (Auto) 6.6 Eos % (Auto) 3.2 Baso % (Auto) 1.3 Neut # (Auto) 4900 Lymph # (Auto) 1700 [place] # (Auto) 500 Eos # (Auto) 200 Baso # (Auto) 100 Sodium 139 Potassium 4.2 Chloride 103 Carbon Dioxide 27 BUN 11 Creatinine 0.87 Estimated GFR > 60 BUN/Creatinine Ratio 12.6 Glucose 107 H Calcium 9.4 Total Bilirubin 0.8 AST 23 ALT 16 Alkaline Phosphatase 66 Total Protein 7.8 Albumin 4.9 Globulin 2.9 Albumin/Globulin Ratio 1.7 Lipase 61 Urine Color Yellow Urine Appearance Clear Urine pH 7.0 Ur Specific [place] <=1.005 Urine Protein Negative Urine Glucose (UA) Negative Urine Ketones Negative Urine Occult Blood Negative Urine Nitrate Negative Urine Bilirubin Negative Urine Urobilinogen 0.2 Ur Leukocyte Esterase Negative Urine RBC 0-1/hpf Urine WBC 0-1/hpf Ur Squamous Epith Cells 0-1 /hpf Urine Bacteria Occasional (0-1) Ur Culture Indicated? Cult not indicated Vol Urine Centrifuged 10ml (spun) Stl C. cayetanensis PCR Not detected Stool Rotavirus (PCR) Not detected Stool Adenovirus (PCR) Not detected Stool Astrovirus (PCR) Not detected Stool Cryptosporidium PCR Not detected Stl E.coli Shiga Tox PCR Not detected St Sh/Enteroin Ecoli PCR Not detected Stl Enterotoxigenic E PCR Not detected Stool EPEC (PCR) Not detected Stl E. histolytica PCR Not detected Stool Giardia Lamblia PCR Not detected Stool Sapovirus (PCR) Not detected Stl P. shigelloides PCR Not detected St Y.enterocolitica PCR Not detected Stool Vibrio (PCR) Not detected Stl Vibrio cholerae PCR Not detected Stl Enteroaggr Ecoli PCR Not detected Stl Norovirus GI/GII PCR Not detected Campylobacter (PCR) Not detected C. difficile Tox (PCR) Not detected Salmonella (PCR) Not detected PFSH Comment: irritable bowel syndrome, cannabis abuse Social History details: lives with parents household members: family Tobacco & Substance Use Smoking Status: Current every day smoker substance use type: marijuana Assessment & Plan Assessment and plan (1) Right lower quadrant abdominal pain: Status: Acute Assessment & Plan narrative: In the absence of fever, nausea or vomiting, and normal white blood cell count and no shift, his Cheung score is at most 4 and he is clinically unlikely to have appendicitis. His ultrasound is equivocal. His symptoms have been intermittent over years. There was certainly a component of chronicity and irritable bowel syndrome that is clouding the diagnosis if this is appendicitis. Long discussion with patient, and his girlfriend over the phone, about options for laparoscopic appendectomy versus antibiotics. I told him that even if this is acute appendicitis that antibiotics may be successful 70-80% of the time, however if he starts to develop increased pain, fevers or chills becomes too uncomfortable, he can remove and we would take out his appendicitis laparoscopically. He is agreeable to that plan. We also discussed how his marijuana abuse may contribute to abdominal distress. Recommend that he see his primary care doctor to deal with other sources of treating his anxiety and irritable bowel syndrome. Understanding he has a difficult home life and has been self medicating with marijuana and vapes for that reason. His girlfriend was recently diagnosed with borderline personality disorder and has been using DBT training, and I advised him to talk with her about that skill set and what that can do to help break his anxiety cycles. I recommend that he find local therapists. Time-Based Coding :: [TOTAL MINUTES] spent with patient and on the chart (including review of chart, obtaining history, exam, reviewing outside data, placing orders, documenting exam and treatment plan, and counseling patient) on [DATE]. PROFEE Charge Codes Inpatient or Observation consultation: [id number]
--- NOTE | 2024-07-02 11:20 | PM.HP.IH.1 ---
History of Present Illness History of Present Illness Date Patient Seen: 07/02/24 Time Patient Seen: 11:20 Chief complaint: right sided abd pain white stools Narrative: 23-year-old white male, seen and evaluated in the ER yesterday for abdominal pain off and on for the last 2 years. His pain is in the right lower quadrant. His white blood cell count was normal as Cheung score was low, he felt well and seemed okay for discharge. His ultrasound yesterday did not show any evidence of fluid, perforation. He got IV Zosyn yesterday. He is ambulating around the ER, but states his pain is worse today than yesterday and that is why he returned. [facility] Social History details: lives with parents household members: family Smoking Status: Current every day smoker substance use type: marijuana Meds Home Medications and Allergies Home Medications Medication Instructions Recorded Confirmed Type metoclopramide HCl 10 mg tablet 10 mg PO Q6H PRN nausea and 11/29/21 Rx (Reglan) vomiting #20 tabs metoclopramide HCl 10 mg tablet 10 mg PO Q6H PRN nausea and 02/20/24 Rx vomiting #30 tabs omeprazole 40 mg capsule,delayed 40 mg PO DAILY #30 caps 02/20/24 Rx release promethazine 25 mg tablet 25 mg PO TID PRN nausea and 02/20/24 Rx vomiting #30 tabs amoxicillin 875 mg-potassium 1 tab PO BID #10 tabs 07/01/24 Rx clavulanate 125 mg tablet Allergies Allergy/AdvReac Type Severity Reaction Status Date / Time No Known Drug Allergies Allergy Verified 07/02/24 11:06 Review of Systems Review of Systems ROS: Yes All systems reviewed with the patient and are negative except as otherwise documented Exam Vital Signs (past 8 hours): Oxygen Delivery Method Room Air Narrative Exam Narrative: Gen: NAD, ambulating in the hallways, appears well HEENT: Sclera are anicteric, head is normocephalic and atraumatic, trachea is midline. CV: RRR, no JVD Resp: clear to auscultation bilaterally, equal chest wall movement bilaterally Abd: soft, tender in right lower quadrant,, normoactive bowel sounds Ext: no edema, full range of motion Neuro: Cranial nerves II-XII grossly intact, no focal deficits Skin: No erythema or ecchymosis Objective Labs 07/01/24 10:30 07/01/24 10:30 Labs: Laboratory Results - last 24 hr 07/01/24 07/01/24 10:00 10:30 WBC 7.4 RBC 4.63 Hgb 14.6 Hct 43.4 MCV 93.8 MCH 31.5 MCHC 33.5 RDW 13.2 Plt Count 162 Neut % (Auto) 65.5 Lymph % (Auto) 23.4 L Cannon % (Auto) 6.6 Eos % (Auto) 3.2 Baso % (Auto) 1.3 Neut # (Auto) 4900 Lymph # (Auto) 1700 Cannon # (Auto) 500 Eos # (Auto) 200 Baso # (Auto) 100 Sodium 139 Potassium 4.2 Chloride 103 Carbon Dioxide 27 BUN 11 Creatinine 0.87 Estimated GFR > 60 BUN/Creatinine Ratio 12.6 Glucose 107 H Calcium 9.4 Total Bilirubin 0.8 AST 23 ALT 16 Alkaline Phosphatase 66 Total Protein 7.8 Albumin 4.9 Globulin 2.9 Albumin/Globulin Ratio 1.7 Lipase 61 Urine Color Yellow Urine Appearance Clear Urine pH 7.0 Ur Specific [place] <=1.005 Urine Protein Negative Urine Glucose (UA) Negative Urine Ketones Negative Urine Occult Blood Negative Urine Nitrate Negative Urine Bilirubin Negative Urine Urobilinogen 0.2 Ur Leukocyte Esterase Negative Urine RBC 0-1/hpf Urine WBC 0-1/hpf Ur Squamous Epith Cells 0-1 /hpf Urine Bacteria Occasional (0-1) Ur Culture Indicated? Cult not indicated Vol Urine Centrifuged 10ml (spun) Stl C. cayetanensis PCR Not detected Stool Rotavirus (PCR) Not detected Stool Adenovirus (PCR) Not detected Stool Astrovirus (PCR) Not detected Stool Cryptosporidium PCR Not detected Stl E.coli Shiga Tox PCR Not detected St Sh/Enteroin Ecoli PCR Not detected Stl Enterotoxigenic E PCR Not detected Stool EPEC (PCR) Not detected Stl E. histolytica PCR Not detected Stool Giardia Lamblia PCR Not detected Stool Sapovirus (PCR) Not detected Stl P. shigelloides PCR Not detected St Y.enterocolitica PCR Not detected Stool Vibrio (PCR) Not detected Stl Vibrio cholerae PCR Not detected Stl Enteroaggr Ecoli PCR Not detected Stl Norovirus GI/GII PCR Not detected Campylobacter (PCR) Not detected C. difficile Tox (PCR) Not detected Salmonella (PCR) Not detected Assessment & Plan Assessment and plan (1) Acute appendicitis with localized peritonitis: Status: Acute Assessment & Plan narrative: Risks, benefits and alternatives to laparoscopic appendectomy were explained. Most importantly in his case with the diagnosis of irritable bowel syndrome, there may be another issue causing his abdominal pain that would not be relieved by laparoscopic appendectomy. Risks of bleeding, infection, abscess, leak, injury to surrounding structures explained. Patient agrees to proceed with laparoscopic appendectomy. Time-Based Coding :: [TOTAL MINUTES] spent with patient and on the chart (including review of chart, obtaining history, exam, reviewing outside data, placing orders, documenting exam and treatment plan, and counseling patient) on [DATE]. 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
== END 2024-07-01 13:47 | disposition home or self-care (01) ==
PROVIDERS: Emergency Provider Emergency Medicine
DX: K35.30 Acute appendicitis with localized peritonitis, without perforation or gangrene (principal); R10.31 Right lower quadrant pain; Z87.442 Personal history of urinary calculi; F17.210 Nicotine dependence, cigarettes, uncomplicated; F12.90 Cannabis use, unspecified, uncomplicated
CPT/HCPCS: 36415; 76705; 80053; 81003; 81015; 83690; 85025; 87507; 96365; 99284; J2543

== ENCOUNTER 2024-07-02 11:00 | Observation (INO) | payer OTHER, SELFPAY ==
[2024-07-02] VITALS (11 sets, daily range): BP systolic 85–122; BP diastolic 50–79; PULSE 46–88; RESP 11–23; TEMP 36.3–36.8; O2SAT 90–100; BMI 18.1
--- NOTE | 2024-07-02 | PATH_ITS ---
[facility] Accession Number: [id number] No. of containers..01 Tissue . 01 Material submitted: . appendix - APPENDIX . 01 Diagnosis: APPENDIX, APPENDECTOMY: Appendix with reactive lymphoid hyperplasia. Histologic features diagnostic for acute appendicitis are not definitely seen. Negative for dysplasia and malignancy. MRV 07/05/2024 1412 Local . 01 Electronically signed: . Viviane Ramirez MD, Pathologist NPI- [id number] . 01 Gross description: . Received in formalin with two patient identifiers and appendix, is an intact vermiform appendix, 7.0 x 0.8 cm. The serosa is arevalo and smooth with grossly dilated vasculature. The margin is inked blue, and section reveals a patent lumen and averages 0.3 cm in diameter, containing arevalo fluid. The esquivel average 0.3 cm thick with no lesions identified, and sales and marketing representative sections to include the entire bisected distal tip, margin, and cross sections are submitted in A1. ([id number]) /MRV 07/04/20242028 Local . 01 Pathologist provided ICD-10: R10.9 . 01 CPT . 836111 Specimen Comment: A courtesy copy of this report has been sent to [facility] Pathology Performed at: [address], [place], [place] [id number] MD Miguel A Patel MD Phone: [phone]
--- NOTE | 2024-07-02 11:27 | ED_ITS ---
HPI - Recheck/Abnormal Lab/Rx <Connie Valadez PA-C - Last Filed: 07/02/24 17:24> General Chief Complaint: Recheck/Abnormal Lab/Rx Stated Complaint: RL ABD pain Time Seen by Provider: 07/02/24 11:11 Source: patient Mode of arrival: EMS History of Present Illness HPI narrative: Mr. Byron Contreras is a pleasant 23-year-old male with a past medical history of kidney stones, chronic abdominal pain, IBS who presents to the emergency department via EMS for RLQ abdominal pain, with a total of 4 days of abdominal pain. Patient was seen in the emergency department yesterday for 3 days of right lower quadrant abdominal pain. He had lab work and abdominal ultrasound performed, ultrasound was equivocal for appendicitis. The patient was evaluated by General surgery Dr. Antonio and the patient decided to trial outpatient oral antibiotics with Augmentin/Flagyl. Was given strict return precautions. Patient states that this morning he attempted to take his antibiotics but became nauseous and threw them up which prompted his return ED visit, he is having continual right lower quadrant abdominal pain as well. Patient denies any new symptoms such as fevers, chills, diarrhea, constipation, hematuria, dysuria, flank pain. Dr. Antonio has already evaluated the patient and plans for OR later today. Patient is agreeable to surgery today. He is with his mom. Patient has a social history of occasional alcohol use, occasional marijuana smoking and occasional vaping. No prior surgeries. No known allergies. Related Data Previous Rx's Medication Instructions Recorded metoclopramide HCl 10 mg tablet 10 mg PO Q6H PRN nausea and 11/29/21 (Reglan) vomiting #20 tabs metoclopramide HCl 10 mg tablet 10 mg PO Q6H PRN nausea and 02/20/24 vomiting #30 tabs omeprazole 40 mg capsule,delayed 40 mg PO DAILY #30 caps 02/20/24 release promethazine 25 mg tablet 25 mg PO TID PRN nausea and 02/20/24 vomiting #30 tabs amoxicillin 875 mg-potassium 1 tab PO BID #10 tabs 07/01/24 clavulanate 125 mg tablet meloxicam 15 mg tablet 15 mg PO DAILY #30 tabs 07/02/24 oxycodone 5 mg tablet 5 mg PO Q8H PRN pain, severe #7 07/02/24 tabs tizanidine 2 mg tablet 2 mg PO Q8H PRN muscle spasticity 07/02/24 or pain #90 tabs Allergies Allergy/AdvReac Type Severity Reaction Status Date / Time No Known Drug Allergies Allergy Verified 07/02/24 11:06 Review of Systems <Connie Valadez PA-C - Last Filed: 07/02/24 17:24> Review of Systems ROS Unobtainable: All systems reviewed & are unremarkable except as noted in HPI and below Patient History <Connie Valadez PA-C - Last Filed: 07/02/24 17:24> Social History details: lives with parents household members: family Smoking Status: Current every day smoker substance use type: marijuana Smoking Status: Current every day smoker tobacco type: cigarettes and vaping alcohol intake frequency: holidays/special occasions only Exam <Connie Valadez PA-C - Last Filed: 07/02/24 17:24> Narrative Exam Narrative: GENERAL: 23 year old patient appears stated age. Well-developed patient, in no acute distress. HEAD: Atraumatic. Normocephalic. NECK: Trachea midline. Cervical ROM intact. CARDIOVASCULAR: Regular rate and rhythm. RESPIRATORY: ?Nonlabored respirations. ?Speaking in clear, full sentences. ?Clear to auscultation. Breath sounds equal bilaterally. No wheezes, rales, or rhonchi. ? GASTROINTESTINAL: Abdomen nondistended. There is tenderness with deep palpation in the right lower quadrant overlying McBurney's point and also in the left lower quadrant. No rebound or guarding. Normal bowel sounds. EXTREMITIES: No edema or joint tenderness. BACK: Nontender without deformity or crepitance. No flank tenderness. NEURO: AOx3. ?Clear speech. ?Moves all 4 extremities appropriately. SKIN: No rash or erythema of visible areas Initial Vital Signs Initial Vital Signs: Vital Signs Temperature 97.4 F L 07/02/24 11:07 Pulse Rate 66 07/02/24 11:07 Respiratory Rate 17 07/02/24 11:07 Blood Pressure 122/74 07/02/24 11:07 Pulse Oximetry 98 07/02/24 11:07 Oxygen Delivery Method Room Air 07/02/24 11:07 <Felicia Cornejo DO - Last Filed: 07/03/24 08:28> Initial Vital Signs Initial Vital Signs: Vital Signs Temperature 97.4 F L 07/02/24 11:07 Pulse Rate 66 07/02/24 11:07 Respiratory Rate 17 07/02/24 11:07 Blood Pressure 122/74 07/02/24 11:07 Pulse Oximetry 98 07/02/24 11:07 Oxygen Delivery Method Room Air 07/02/24 11:07 Course <Connie Valadez PA-C - Last Filed: 07/02/24 17:24> Orders Ordered: Discontinued Medications Acetaminophen (Acetaminophen 325 Mg Tablet) 975 mg PO NOW ONE Stop: 07/02/24 18:04 Bupivacaine HCl/Epinephrine Bitart (Bupivacaine 0.25% W/ Epi 30 Ml Vial) 30 ml INJ NOW ONE Stop: 07/02/24 17:45 Last Admin: 07/02/24 17:44 Dose: 30 ml Documented By: PH Famotidine (Famotidine 20 Mg/2 Ml Vial) 20 mg IV NOW ONE Stop: 07/02/24 15:02 Last Admin: 07/02/24 16:10 Dose: 20 mg Documented By: CG Piperacillin Sod/Tazobactam (Sod 4.5 gm/ Sodium Chloride) 100 mls @ 200 mls/hr IV NOW ONE Stop: 07/02/24 11:25 Last Infusion: 07/02/24 13:11 Dose: Infused Documented By: Admin: 07/02/24 12:13 Dose: 200 mls/hr Documented By: AI Lactated Ringer's (Lactated Ringers) 1,000 mls @ 42 mls/hr IV CONT ALEX Last Admin: 07/02/24 16:09 Dose: 42 mls/hr Documented By: CG Lactated Ringer's (Lactated Ringers) 1,000 mls @ 42 mls/hr IV CONT ALEX Last Infusion: 07/02/24 18:34 Dose: Infused Documented By: Admin: 07/02/24 18:16 Dose: 42 mls/hr Documented By: CG Cefazolin Sodium/Dextrose (Ancef) 100 mls @ 200 mls/hr IV NOW ONE Stop: 07/02/24 17:49 Last Admin: 07/02/24 17:20 Dose: 200 mls/hr Documented By: Z Ketorolac Tromethamine (Ketorolac 30 Mg/Ml Vial) 15 mg IV NOW ONE Stop: 07/02/24 11:49 Last Admin: 07/02/24 12:14 Dose: 15 mg Documented By: AI Meloxicam (Meloxicam 7.5 Mg Tablet) 15 mg PO NOW ONE Stop: 07/02/24 18:05 Last Admin: 07/02/24 19:01 Dose: 15 mg Documented By: CG Ondansetron HCl (Ondansetron 4 Mg/2 Ml Inj) 4 mg IV NOW ONE Stop: 07/02/24 11:49 Last Admin: 07/02/24 12:14 Dose: 4 mg Documented By: AI Tizanidine HCl (Tizanidine 4 Mg Tablet) 4 mg PO NOW ONE Stop: 07/02/24 18:05 Last Admin: 07/02/24 19:01 Dose: 4 mg Documented By: CG Vital Signs Vital signs: Vital Signs - 8 hr 07/02/24 11:07 Temperature 97.4 F L Pulse Rate 66 Respiratory Rate 17 Blood Pressure 122/74 Pulse Oximetry 98 Oxygen Delivery Method Room Air <Felicia Cornejo, - Last Filed: 07/03/24 08:28> Orders Ordered: Discontinued Medications Acetaminophen (Acetaminophen 325 Mg Tablet) 975 mg PO NOW ONE Stop: 07/02/24 18:04 Bupivacaine HCl/Epinephrine Bitart (Bupivacaine 0.25% W/ Epi 30 Ml Vial) 30 ml INJ NOW ONE Stop: 07/02/24 17:45 Last Admin: 07/02/24 17:44 Dose: 30 ml Documented By: GEORGETTE Famotidine (Famotidine 20 Mg/2 Ml Vial) 20 mg IV NOW ONE Stop: 07/02/24 15:02 Last Admin: 07/02/24 16:10 Dose: 20 mg Documented By: CG Piperacillin Sod/Tazobactam (Sod 4.5 gm/ Sodium Chloride) 100 mls @ 200 mls/hr IV NOW ONE Stop: 07/02/24 11:25 Last Infusion: 07/02/24 13:11 Dose: Infused Documented By: Admin: 07/02/24 12:13 Dose: 200 mls/hr Documented By: ANGELICA Lactated Ringer's (Lactated Ringers) 1,000 mls @ 42 mls/hr IV CONT ALEX Last Admin: 07/02/24 16:09 Dose: 42 mls/hr Documented By: YONATHAN Lactated Ringer's (Lactated Ringers) 1,000 mls @ 42 mls/hr IV CONT ALEX Last Infusion: 07/02/24 18:34 Dose: Infused Documented By: Admin: 07/02/24 18:16 Dose: 42 mls/hr Documented By: YONATHAN Cefazolin Sodium/Dextrose (Ancef) 100 mls @ 200 mls/hr IV NOW ONE Stop: 07/02/24 17:49 Last Admin: 07/02/24 17:20 Dose: 200 mls/hr Documented By: FEMI Ketorolac Tromethamine (Ketorolac 30 Mg/Ml Vial) 15 mg IV NOW ONE Stop: 07/02/24 11:49 Last Admin: 07/02/24 12:14 Dose: 15 mg Documented By: ANGELICA Meloxicam (Meloxicam 7.5 Mg Tablet) 15 mg PO NOW ONE Stop: 07/02/24 18:05 Last Admin: 07/02/24 19:01 Dose: 15 mg Documented By: YONATHAN Ondansetron HCl (Ondansetron 4 Mg/2 Ml Inj) 4 mg IV NOW ONE Stop: 07/02/24 11:49 Last Admin: 07/02/24 12:14 Dose: 4 mg Documented By: ANGELICA Tizanidine HCl (Tizanidine 4 Mg Tablet) 4 mg PO NOW ONE Stop: 07/02/24 18:05 Last Admin: 07/02/24 19:01 Dose: 4 mg Documented By: YONATHAN Vital Signs Vital signs: Vital Signs - 8 hr 07/02/24 11:07 Temperature 97.4 F L Pulse Rate 66 Respiratory Rate 17 Blood Pressure 122/74 Pulse Oximetry 98 Oxygen Delivery Method Room Air MDM - Recheck/Abnormal Lab/Rx <Connie Valadez PA-C - Last Filed: 07/02/24 17:24> Medical Records Attestation: I reviewed the patient's medical records. Lab Data 07/02/24 11:56 07/02/24 11:56 Labs: Lab Results 07/02/24 Range/Units 11:56 WBC 8.5 (4.5-11.0) X10^3/uL RBC 4.67 (4.5-5.9) X10^6/uL Hgb 14.9 (13.5-17.5) g/dL Hct 43.5 (41-53) % MCV 93.1 (80-100) fL MCH 31.9 (26-34) PG MCHC 34.2 (30-36) % RDW 12.8 (11.6-14.8) % Plt Count 160 (150-400) X10^3/uL Neut % (Auto) 76.3 H (50-75) % Lymph % (Auto) 15.1 L (25-40) % [place] % (Auto) 5.6 (3-14) % Eos % (Auto) 2.2 (2-4) % Baso % (Auto) 0.8 (0-2) % Neut # (Auto) 6500 (2433-3805) /uL Lymph # (Auto) 1300 (9322-9099) /uL [place] # (Auto) 500 (0-900) /uL Eos # (Auto) 200 (0-450) /uL Baso # (Auto) 100 (0-100) /uL Sodium 139 (137-145) mmol/L Potassium 3.9 (3.4-5.1) mmol/L Chloride 105 (98-107) mmol/L Carbon Dioxide 24 (22-32) mmol/L BUN 10 (9-20) mg/dL Creatinine 0.79 (0.66-1.25) mg/dL Estimated GFR > 60 (>60) mL/min BUN/Creatinine Ratio 12.7 (6-22) Glucose 109 H (70-100) mg/dL Calcium 9.6 (8.4-10.2) mg/dL Total Bilirubin 1.2 (0.2-1.3) mg/dL AST 21 (17-59) IU/L ALT 16 (<50) IU/L Alkaline Phosphatase 71 (38-126) U/L Total Protein 7.7 (6.3-8.2) g/dL Albumin 4.8 (3.5-5.0) g/dL Globulin 2.9 (1.7-4.1) g/dL Albumin/Globulin Ratio 1.7 (1.0-2.8) MDM Narrative Medical decision making narrative: 23-year-old male with a past medical history of kidney stones, chronic abdominal pain, IBS who presents to the emergency department via EMS for RLQ abdominal pain, with a total of 4 days of abdominal pain. Patient was seen in the emergency department yesterday for 3 days of right lower quadrant abdominal pain. He had lab work and abdominal ultrasound performed, ultrasound was equivocal for appendicitis. The patient was evaluated by General surgery Dr. Antonio and the patient decided to trial outpatient oral antibiotics with Augmentin/Flagyl. Differential diagnosis includes but is not limited to appendicitis, perforated appendicitis, appendicolith, etc. On exam the patient is in no acute distress, nontoxic-appearing, all vital signs within normal limits. Patient is here for surgical management of appendicitis after being unable to tolerate oral antibiotics. Lab work and ultrasound was obtained yesterday, I consulted gen surg Dr. Antonio and he evaluated patient and plans for OR later today, he does not request any repeat labs or imaging. He does request Zosyn. Patient is agreeable to this plan and stable at this time. Dr. Cornejo, ED attending, aware of plan. At this time patient is NPO, plan is for him to be discharged after surgery, will not be admitted to hospitalist. Labs all stable with no acute abnormalities, there is slight increase in neutrophil percentage 276.3% however normal WBC count, normal platelets, no anemia. Patient was transferred to the OR in stable condition, all questions answered. <Felicia Cornejo, DO - Last Filed: 07/03/24 08:28> Lab Data Labs: Lab Results 07/02/24 Range/Units 11:56 WBC 8.5 (4.5-11.0) X10^3/uL RBC 4.67 (4.5-5.9) X10^6/uL Hgb 14.9 (13.5-17.5) g/dL Hct 43.5 (41-53) % MCV 93.1 (80-100) fL MCH 31.9 (26-34) PG MCHC 34.2 (30-36) % RDW 12.8 (11.6-14.8) % Plt Count 160 (150-400) X10^3/uL Neut % (Auto) 76.3 H (50-75) % Lymph % (Auto) 15.1 L (25-40) % [place] % (Auto) 5.6 (3-14) % Eos % (Auto) 2.2 (2-4) % Baso % (Auto) 0.8 (0-2) % Neut # (Auto) 6500 (6538-0042) /uL Lymph # (Auto) 1300 (0386-1684) /uL [place] # (Auto) 500 (0-900) /uL Eos # (Auto) 200 (0-450) /uL Baso # (Auto) 100 (0-100) /uL Sodium 139 (137-145) mmol/L Potassium 3.9 (3.4-5.1) mmol/L Chloride 105 (98-107) mmol/L Carbon Dioxide 24 (22-32) mmol/L BUN 10 (9-20) mg/dL Creatinine 0.79 (0.66-1.25) mg/dL Estimated GFR > 60 (>60) mL/min BUN/Creatinine Ratio 12.7 (6-22) Glucose 109 H (70-100) mg/dL Calcium 9.6 (8.4-10.2) mg/dL Total Bilirubin 1.2 (0.2-1.3) mg/dL AST 21 (17-59) IU/L ALT 16 (<50) IU/L Alkaline Phosphatase 71 (38-126) U/L Total Protein 7.7 (6.3-8.2) g/dL Albumin 4.8 (3.5-5.0) g/dL Globulin 2.9 (1.7-4.1) g/dL Albumin/Globulin Ratio 1.7 (1.0-2.8) Discharge Plan Departure Patient Disposition: Admitted to Surgery Clinical Impression: Acute appendicitis Qualifiers: Acute appendicitis type: unspecified acute appendicitis type Qualified Code(s): K35.80 - Unspecified acute appendicitis Admit Date/Time: 07/02/24 12:00 Admit Provider: Zach Antonio ED Sign-out <Felicia Cornejo DO - Last Filed: 07/03/24 08:28> Cosign ED Attending Cosignature Attestation: I was available for consultation.
[2024-07-02] MEDS: PIPERACILLIN/TAZO 4.5 GM in SODIUM CHLORIDE 0.9% 100 ML IV (12:13)
[2024-07-02] MEDS: KETOROLAC 30 MG/ML VIAL 15 MG IV (12:14)
[2024-07-02] MEDS: ONDANSETRON 4 MG/2 ML INJ IV (12:14)
[2024-07-02 12:15] LABS: Add Manual Diff / Slide Review NO; Alanine Aminotransferase 16 IU/L (<50); Albumin 4.8 g/dL (3.5-5.0); Albumin Globulin Ratio 1.7 (1.0-2.8); Alkaline Phosphatase 71 U/L (38-126); Aspartate Aminotransferase 21 IU/L (17-59); BUN Creatinine Ratio 12.7 (6-22); Basophils Absolute Auto 100 /uL (0-100); Basophils Percent Auto 0.8 % (0-2); Bilirubin Total 1.2 mg/dL (0.2-1.3); Blood Urea Nitrogen 10 mg/dL (9-20); Calcium 9.6 mg/dL (8.4-10.2); Carbon Dioxide 24 mmol/L (22-32); Chloride 105 mmol/L (98-107); Eosinophils Absolute Auto 200 /uL (0-450); Eosinophils Percent Auto 2.2 % (2-4); Estimated Glomerular Filt Rate > 60 mL/min (>60); Globulin 2.9 g/dL (1.7-4.1); Glucose 109 mg/dL (70-100); HEMOLYSIS < 15 (0-50); Hematocrit 43.5 % (41-53); Hemoglobin 14.9 g/dL (13.5-17.5); Lymphocytes Absolute Auto 1300 /uL (1100-4500); Lymphocytes Percent Auto 15.1 % (25-40); Mean Corpuscular HGB Conc 34.2 % (30-36); Mean Corpuscular Hemoglobin 31.9 PG (26-34); Mean Corpuscular Volume 93.1 fL (80-100); Monocytes Absolute Auto 500 /uL (0-900); Monocytes Percent Auto 5.6 % (3-14); Neutrophils Absolute Auto 6500 /uL (1500-7000); Neutrophils Percent Auto 76.3 % (50-75); Platelet Count 160 X10^3/uL (150-400); Potassium 3.9 mmol/L (3.4-5.1); Red Blood Cell Count 4.67 X10^6/uL (4.5-5.9); Red Cell Distribution Width 12.8 % (11.6-14.8); Sodium 139 mmol/L (137-145); Total Protein 7.7 g/dL (6.3-8.2); White Blood Cell Count 8.5 X10^3/uL (4.5-11.0)
[2024-07-02] MEDS: LACTATED RINGERS 1,000 ML 42 ML IV ×2 (16:09→18:16)
[2024-07-02] MEDS: FAMOTIDINE 20 MG/2 ML VIAL IV (16:10)
[2024-07-02] MEDS: CEFAZOLIN 2 GM/100 ML PREMIX 100 ML IV (17:20)
--- NOTE | 2024-07-02 17:36 | SUR.OPER ---
Supine on padded OR bed, head on pillow, left arm padded and tucked at side, right arm resting and secured on padded arm board, legs uncrossed, safety belt at thigh.
[2024-07-02] MEDS: BUPIVACAINE 0.25% W/ EPI 30 ML VIAL INJ (17:44)
--- NOTE | 2024-07-02 17:58 | P.OP_ITS ---
Operative Date/Time/Diagnoses Date of procedure: 07/02/24 Time of procedure: 17:59 Pre-op diagnosis: Acute appendicitis Post-op diagnosis: same (adhesions around the appendix, but no perforation or gangrene) Procedure & Clinicians Procedure: Laparoscopic appendectomy Same procedure as scheduled: Yes Indications: Patient presented the emergency department yesterday with an ultrasound showing borderline abnormal appendix with a fecalith. Presented again today with worsening symptoms despite antibiotics. Surgeon: Zach Antonio Click Yes if Unassisted: Yes Anesthesia Type: General Operative Notes Findings: Grossly normal appendix, no signs of Meckel's diverticulitis, cholecystitis or any other intra-abdominal pathology. Closure Type: primary Specimen(s): other (Appendix) Estimated Blood Loss (mL): 15 Procedure in detail: Patient was brought to the operating room suite after consent was obtained. General anesthesia was induced. Time-out was performed. With the patient in the supine position with the left arm tucked the abdomen was prepped and draped in usual fashion. Total of 30 mL of 0.5% Marcaine were infiltrated in all trocar sites as well as performing bilateral transversus abdominis plane blocks and rectus blocks. 5 mm optical trocar was placed through the left upper quadrant at chase's point. Pneumoperitoneum was achieved. The abdomen was inspected. There was no gross abnormalities of the small bowel or colon. The appendix had some adhesions to the lateral aspect but was not obviously inflamed. No sign of a Meckel's, diverticulitis, or other pathology were explained to symptoms. 45 mm white load was fired across the base of the appen aly of the cecum. Additional 45 mm white load was fired across the mesoappendix. The appendix was placed in a bag and brought out through the umbilical port. The abdomen was inspected and there was no spillage or active bleeding at the end of the case. The umbilical trocar was closed with an 0 Vicryl on a Salvatore-Abner suture Passer. Pneumoperitoneum was relieved. Skin was closed with 4-0 Monocryl and Dermabond. Patient awoke was transferred to PACU in stable condition for anticipated same-day discharge Complications: none Post-operative Condition: stable Disposition: PACU Plan for aftercare: home with mother
--- NOTE | 2024-07-02 18:41 | SUR.PHASEI ---
Patient denies pain or nausea; vss; incisions clean, dry and intact. Drinking water without difficulty.
[2024-07-02] MEDS: MELOXICAM 7.5 MG TABLET 15 MG PO (19:01)
[2024-07-02] MEDS: TIZANIDINE 4 MG TABLET PO (19:01)
--- NOTE | 2024-07-02 19:29 | SUR.PHASEII ---
Discharged patient home with mother; written instructions provided. Home in stable condition.
== END 2024-07-02 19:30 | disposition home or self-care (01) ==
LOC: ED 11:48 → AC 12:01
PROVIDERS: Admitting Provider Surgery; Emergency Provider Physician Assistant; Referring Provider Physician Assistant; Visit Provider Surgery
PROC: 0DTJ4ZZ Resection of Appendix, Percutaneous Endoscopic Approach (ICD-10-PCS; CPT 44970; principal; 2024-07-02 17:00)
DX: K35.80 Unspecified acute appendicitis (principal); F41.9 Anxiety disorder, unspecified; F12.90 Cannabis use, unspecified, uncomplicated; F17.210 Nicotine dependence, cigarettes, uncomplicated; K58.9 Irritable bowel syndrome, unspecified; K38.8 Other specified diseases of appendix; K38.1 Appendicular concretions
CPT/HCPCS: 44970; 36415; 80053; 81003; 85025; 96365; 96375; 99283; 99284; G0378; J0690; J1100; J1171; J1885; J2250; J2405; J2543; J2704; J3010; J3490

== ENCOUNTER 2024-09-25 11:25 | Emergency (ER) | payer OTHER, SELFPAY ==
[2024-09-25 12:06] VITALS: BP 108/57; PULSE 80; RESP 16; TEMP 36.9; O2SAT 99; BMI 17.6
--- NOTE | 2024-09-25 15:36 | EKG_ITS ---
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
--- NOTE | 2024-09-25 16:32 | ED.NEUROSD ---
HPI - Neuro Symptoms/Deficit <Catrina Duarte PA-C - Last Filed: 09/26/24 18:57> General Chief Complaint: Neuro Symptoms/Deficit Stated Complaint: seeing spots and whole body pain- sx recently Time Seen by Provider: 09/25/24 13:44 Source: patient Mode of arrival: Ambulatory History of Present Illness HPI Narrative: 24-year-old male with past medical history ADHD presents to the ED with worsening anxiety, sporadic all-over body numbness. Patient states that he used to take medications for ADHD which he stopped at age 17. Patient states that he has had a ongoing issue with depression and anxiety. Patient is not currently on any medications. Patient states that of late, he has become more and more agoraphobic. Patient states that he lives in an RV with his parents, is most comfortable being confined in there. Patient states that his anxiety worsens when he leaves that environment. Denies fever, chills, shortness of breath, abdominal pain, lightheadedness, dizziness, syncope. Cold turkey quit marijuana and tobacco over the last 2 days. Patient endorses feeling more nauseous and unable to eat very due to that. Patient denies suicidal ideation, homicidal ideation. Patient is currently not seeing any mental health counselor or therapist. Patient states that his PCP has not referred him to one yet. On Anticoagulants: No Related Data Previous Rx's ?Medication ?Instructions ?Recorded metoclopramide HCl 10 mg tablet 10 mg PO Q6H PRN nausea and 11/29/21 (Reglan) vomiting #20 tabs metoclopramide HCl 10 mg tablet 10 mg PO Q6H PRN nausea and 02/20/24 vomiting #30 tabs omeprazole 40 mg capsule,delayed 40 mg PO DAILY #30 caps 02/20/24 release promethazine 25 mg tablet 25 mg PO TID PRN nausea and 02/20/24 vomiting #30 tabs amoxicillin 875 mg-potassium 1 tab PO BID #10 tabs 07/01/24 clavulanate 125 mg tablet meloxicam 15 mg tablet 15 mg PO DAILY #30 tabs 07/02/24 oxycodone 5 mg tablet 5 mg PO Q8H PRN pain, severe #7 07/02/24 tabs tizanidine 2 mg tablet 2 mg PO Q8H PRN muscle spasticity 07/02/24 or pain #90 tabs doxycycline hyclate 100 mg capsule 100 mg PO BID #20 caps 10/03/24 Allergies Allergy/AdvReac Type Severity Reaction Status Date / Time No Known Drug Allergies Allergy Verified 10/03/24 00:35 Review of Systems <Catrina Duarte PA-C - Last Filed: 09/26/24 18:57> Constitutional Constitutional: Denies chills, Denies fatigue, Denies fever(s), Denies frequent falls, Denies lethargy and Denies weakness Eyes Eyes: Denies change in vision, Denies eye discharge, Denies irritation and Denies loss of vision ENT Ears, Nose, Mouth, and Throat: Denies change in voice, Denies dizziness, Denies neck pain, Denies sore throat and Denies throat swelling Cardiovascular Cardiovascular: Denies chest pain, Denies irregular heart rhythm, Denies lightheadedness, Denies palpitations, Denies dyspnea, Denies dyspnea on exertion and Denies orthopnea Respiratory Respiratory: Denies cough, Denies dyspnea, Denies dyspnea on exertion and Denies wheezing Gastrointestinal Gastrointestinal: Denies abdominal pain, Denies change in bowel habits, Denies diarrhea, Reports nausea and Reports vomiting Musculoskeletal Musculoskeletal: Denies neck pain and Denies numbness Integumentary/Breasts Skin/Breast: Denies pruritus, Denies erythema, Denies rash and Denies wounds Neurologic Neurologic: Denies behavioral changes, Denies confusion, Denies dizziness, Denies frequent falls, Denies loss of vision, Denies numbness and Denies weakness Psychiatric Psychiatric: Reports anxiety, Denies behavioral changes, Denies confusion, Denies depression, Denies homicidal ideation and Denies suicidal ideation Comments: agoraphobia Endocrine Endocrine: Denies fatigue, Denies flushing and Denies palpitations Hematologic/Lymphatic Hematologic/Lymphatic: Denies easy bruising On Anticoagulants: No Allergic/Immunologic Allergic/Immunologic: Denies urticaria, Denies throat swelling and Denies wheezing Patient History <Catrina Duarte PA-C - Last Filed: 09/26/24 18:57> Social History details: lives with parents household members: family Smoking Status: Former smoker substance use type: marijuana Smoking Status: Current every day smoker tobacco type: cigarettes and vaping alcohol intake frequency: holidays/special occasions only Exam <Catrina Duarte PA-C - Last Filed: 09/26/24 18:57> Narrative Exam Narrative: Const General:?cooperative, healthy appearing and comfortable [facility] Head:?normal to inspection Ears:?hearing grossly normal bilaterally Nose:?external nose normal Face and sinus:?normal facial exam and sinuses nontender Mouth:?oral mucosae normal Throat:?posterior oropharynx normal Eyes General:?appearance normal, both eyes and all related structures Neck Neck:?normal visual inspection and no lymphadenopathy noted Resp Effort & Inspection:?normal respiratory effort Auscultation:?clear to auscultation bilaterally Cardio Rate:?regular rate Rhythm:?regular rhythm Neuro General:?patient alert, patient awake and patient oriented x3 Initial Vital Signs Initial Vital Signs: Vital Signs Temperature 98.5 F 09/25/24 12:06 Pulse Rate 80 09/25/24 12:06 Respiratory Rate 16 09/25/24 12:06 Blood Pressure 108/57 L 09/25/24 12:06 Pulse Oximetry 99 09/25/24 12:06 Oxygen Delivery Method Room Air 09/25/24 12:06 <Gabby Ulloa MD - Last Filed: 12/17/24 06:07> Initial Vital Signs Initial Vital Signs: Vital Signs Temperature 98.5 F 09/25/24 12:06 Pulse Rate 80 09/25/24 12:06 Respiratory Rate 16 09/25/24 12:06 Blood Pressure 108/57 L 09/25/24 12:06 Pulse Oximetry 99 09/25/24 12:06 Oxygen Delivery Method Room Air 09/25/24 12:06 Course <Catrina Duarte PA-C - Last Filed: 09/26/24 18:57> Orders Ordered: ED Orders 09/25/24 15:10 EKG-12 Lead Stat 09/25/24 15:23 [place] [facility] [place] Stat Vital Signs Vital signs: Vital Signs - 8 hr 09/25/24 12:06 Temperature 98.5 F Pulse Rate 80 Respiratory Rate 16 Blood Pressure 108/57 L Pulse Oximetry 99 Oxygen Delivery Method Room Air <Gabby Ulloa MD - Last Filed: 12/17/24 06:07> Orders Ordered: ED Orders 09/25/24 15:10 EKG-12 Lead Stat 09/25/24 15:23 Consult to [employer] - After School Program Director Stat Vital Signs Vital signs: Vital Signs - 8 hr 09/25/24 12:06 Temperature 98.5 F Pulse Rate 80 Respiratory Rate 16 Blood Pressure 108/57 L Pulse Oximetry 99 Oxygen Delivery Method Room Air MDM - Neuro Symptoms/Deficit <Catrina Duarte PA-C - Last Filed: 09/26/24 18:57> MDM Narrative Medical decision making narrative: 24-year-old male with past medical history ADHD presents to the ED with worsening anxiety, sporadic all-over body numbness. Physical exam is reassuring. Lungs are clear to auscultation bilaterally. EKG is normal sinus rhythm with sinus arrhythmia. No acute ST T changes. Discussed findings with patient. Social work consult was obtained to provide resources to patient for mental health as well as put in a referral for a mental health appointment. Patient has been notified that he will be called for an appointment. Recommend patient follow a good diet and good hydration. ED return precautions were discussed with patient. Patient verbalized understanding. Medical records reviewed: Yes Discharge Plan Departure Patient Disposition: Home Clinical Impression: Anxiety Instructions: DI for Anxiety -- Adult Activity Restrictions/Additional Instructions: You were evaluated in the ED today for anxiety. Your EKG was normal. It is possible that your anxiety has increased due to quitting nicotine and marijuana cold . Our social work msw has given you some information on seeking mental health, and will attempt to secure [facility] mental health appointment. They will call you to give you an appointment. In the meanwhile, it is important that you eat a healthy diet including vegetables, protein, fruits. Return to the ED if you have worsening symptoms, thoughts of hurting yourself or others. Prescriptions: No Action metoclopramide HCl [Reglan] 10 mg tablet 10 mg PO Q6H PRN (Reason: nausea and vomiting) Qty: 20 0RF omeprazole 40 mg capsule,delayed release(DR/EC) 40 mg PO DAILY Qty: 30 0RF metoclopramide HCl 10 mg tablet 10 mg PO Q6H PRN (Reason: nausea and vomiting) Qty: 30 0RF promethazine 25 mg tablet 25 mg PO TID PRN (Reason: nausea and vomiting) Qty: 30 0RF amoxicillin-pot clavulanate 875-125 mg tablet 1 tab PO BID Qty: 10 0RF tizanidine 2 mg tablet 2 mg PO Q8H PRN (Reason: muscle spasticity or pain) Qty: 90 0RF meloxicam 15 mg tablet 15 mg PO DAILY Qty: 30 0RF oxycodone 5 mg tablet 5 mg PO Q8H PRN (Reason: pain, severe) Qty: 7 0RF doxycycline hyclate 100 mg capsule 100 mg PO BID Qty: 20 0RF Stand Alone Forms: Patient Portal/API/Survey ED Sign-out <Gabby Ulloa MD - Last Filed: 12/17/24 06:07> Cosign ED Attending Cosignature Attestation: I was immediately available in the department for consultation. This documentation has been reviewed and I agree with assessment and plan. Supervised by Gabby Ulloa MD
--- NOTE | 2024-09-25 16:50 | CM.SWNOTE ---
ED DRUG DEPARTMENT WORKER Assessment Note: DRUG DEPARTMENT WORKER - Lure Maker Assessment DRUG DEPARTMENT WORKER - Lure Maker Assessment Start: 09/25/24 16:29 Freq: Status: Active Protocol: Document 09/25/24 16:29 MW (Rec: 09/25/24 16:49 MW [id number]) DRUG DEPARTMENT WORKER/Lure Maker Assessment Time Spent with Patient Start date 09/25/24 Visit Start Time 16:00 End date 09/25/24 Visit End Time 16:25 Total time Care Management spent on 25 minutes patient visit-in minutes Mental Health Screening Include Onset, Duration, Intensity Presenting Problem Patient presented to the ED with concerns of all over numbness and palpitations which he believes to be all mental. Precipitating Event(s) Patient states he recently stopped smoking nicotine and THC in the last two days cold turkey. Patient explained he has been surrounded by a lot of arguing at home between his parents and explains he has unmedicated ADHD. Patient Strengths Patient is seeking help and is communicative. Current Behavioral Health Provider(s) None established at this time. Include Facility, Provider, Ph. # Psych. Hx Mental Health and Chemical Hx of Vyvanse prescription to Dependency indicate ADHD diagnosis. THC use reported, no other substances reported at this time. Family Hx of Behavioral Abuse Patient stated brother has some substantial mental health issue that have resulted in institutionalization. Psychiatric Hospitalizations (date(s)/ None reported. location) Psychosocial information & Support Patient is a 24yo male, Systems resident of [place] with his parents. School/Work Not currently working, previously worked at [employer]. Legal Concerns Legal Matters - Outstanding Issues None reported. Mental Status Orientation (Person/Place/Time) Aox3 Stated Mood anxious Affect (Congruent with Mood?) Congruent with mood, normal, flat Thought Content - Specify/Describe None reported. None identified Obsessions, Delusions, Hallucinations during assessment. Thought Processes (Isiwwet-Qhrlwbxr-Pmpu Logical, goal directed Bauoipwx-Nigvaimi-Zceqpqzcsq- Yehuqplbgwhycv-Xfpeani-Dpiyardnydsi- Thought Blocking) Speech (Lzgyet-Szyv-Jgvpuiy-Rapid-Soft- Normal, compulsive Loud-Pressured) Motor (Hrvgkh-Qkrvvtziw-Pofg-Other) Normal Insight (Lcno-Bwqc-Quyn/Limited) Fair/limited Judgement (Ntox-Vhca-Fqsu/Limited) Fair Impulse Control (Adequate-Impaired) Adequate Memory (Kxbfgacls-Slnvum-Yzjklr, Intact Impaired-Intact) Concentration (Intact-Impaired) Intact Attention (Intact-Impaired) Intact Behavior (Appropriate-Inappropriate) Appropriate Additional Comment Patient is calm, cooperative and communicative during assessment. Risk Assessment Suicidal Ideation (Plan) No Homicidal Ideation (Plan) No Intervention Intervention Reviewed chart and discussed with ED Provider pt's medical status and discharge needs. Per Provider, to be assessed for inpatient MH vs. outpatient IOP. ED DRUG DEPARTMENT WORKER meets with patient. Patient endorses feeling anxious and not having MH support at home or with a professional. He expresses interest in outpatient referral, agreeable to [facility] referral. Patient denies SI/HI or hallucinations, does not feel inpatient is necessary at this time. ED DRUG DEPARTMENT WORKER and patient discuss goals of care. Patient explains they are agreeable to receive inpatient behavioral health hospitalization at this time. At this time, it is the opinion of this DRUG DEPARTMENT WORKER that patient would benefit from outpatient MH treatment. DRUG DEPARTMENT WORKER informs ED provider, LOUISE Duarte, who indicates agreement. DRUG DEPARTMENT WORKER informs PETER Trevino. Plan RA Plan ED DRUG DEPARTMENT WORKER to send referral to [facility], they will follow up with patient. Patient to be provided with [facility] contact information as well as crisis contacts. DELMIS Hutton
== END 2024-09-25 16:57 | disposition home or self-care (01) ==
PROVIDERS: Emergency Provider Student in an Organized Health Care Education/Training Program
DX: F41.9 Anxiety disorder, unspecified (principal)
CPT/HCPCS: 93005; 99282; 99283

== ENCOUNTER 2024-10-03 00:23 | Emergency (ER) | payer OTHER, SELFPAY ==
[2024-10-03 00:33] VITALS: BP 147/98; PULSE 66; RESP 20; TEMP 36.4; O2SAT 99; BMI 17.4
--- NOTE | 2024-10-03 00:39 | EKG_ITS ---
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
--- NOTE | 2024-10-03 00:39 | DI.RAD.S_ITS ---
PROCEDURE: XR CHEST 1V INDICATIONS: Chest Pain TECHNIQUE: One view of the chest was acquired. COMPARISON: None. FINDINGS: Surgical changes and devices: None. Lungs and pleura: Subtle diffuse opacification over the right upper and middle lung compared to the left. The left lung is clear. Mediastinum: Mediastinal contours appear normal. Heart size is normal. Bones and chest wall: No suspicious bony lesions. Overlying soft tissues appear unremarkable. IMPRESSION: Diffuse right upper and middle lung opacification is nonspecific and may relate to pneumonia, atelectasis, overlying soft tissue density or mass. Clinical correlation recommended and consider chest CT. Dictated by: Michelle Fairchild M.D. on 10/03/2024 at 1:40 Approved by: Michelle Fairchild M.D. on 10/03/2024 at 1:43
[2024-10-03 01:04] LABS: Add Manual Diff / Slide Review NO; Basophils Absolute Auto 100 /uL (0-100); Basophils Percent Auto 0.9 % (0-2); Eosinophils Absolute Auto 300 /uL (0-450); Eosinophils Percent Auto 2.8 % (2-4); Hematocrit 39.9 % (41-53); Hemoglobin 14.1 g/dL (13.5-17.5); Lymphocytes Absolute Auto 3000 /uL (1100-4500); Lymphocytes Percent Auto 30.3 % (25-40); Mean Corpuscular HGB Conc 35.3 % (30-36); Mean Corpuscular Hemoglobin 32.4 PG (26-34); Mean Corpuscular Volume 91.8 fL (80-100); Monocytes Absolute Auto 900 /uL (0-900); Neutrophils Absolute Auto 5700 /uL (1500-7000); Platelet Count 168 X10^3/uL (150-400); Red Blood Cell Count 4.35 X10^6/uL (4.5-5.9); Red Cell Distribution Width 13.4 % (11.6-14.8); White Blood Cell Count 9.9 X10^3/uL (4.5-11.0)
[2024-10-03 01:05] LABS: INR 1.1 (0.9-1.3)
[2024-10-03 01:08] LABS: PTT Partial Thromboplastin Tim 35 SECONDS (25.1-36.5)
[2024-10-03 01:10] LABS: Alanine Aminotransferase 17 IU/L (<50); Albumin 4.6 g/dL (3.5-5.0); Albumin Globulin Ratio 1.8 (1.0-2.8); Alkaline Phosphatase 74 U/L (38-126); Aspartate Aminotransferase 26 IU/L (17-59); BUN Creatinine Ratio 17.3 (6-22); Bilirubin Total 1.1 mg/dL (0.2-1.3); Blood Urea Nitrogen 13 mg/dL (9-20); Calcium 9.5 mg/dL (8.4-10.2); Carbon Dioxide 26 mmol/L (22-32); Chloride 105 mmol/L (98-107); Creatine Kinase 228 U/L (55-170); Estimated Glomerular Filt Rate > 60 mL/min (>60); Globulin 2.5 g/dL (1.7-4.1); Glucose 98 mg/dL (70-99); HEMOLYSIS < 15 (0-50); Lipase 74 U/L (23-300); Magnesium 1.8 mg/dL (1.6-2.3); Potassium 3.4 mmol/L (3.4-5.1); Sodium 141 mmol/L (137-145); Total Protein 7.1 g/dL (6.3-8.2)
[2024-10-03 01:22] LABS: NT-proBNP (BNP-Adult 18+) 25 pg/mL (<125); Troponin I < 0.012 ng/mL (0.01-0.034)
[2024-10-03 02:01] VITALS: BP 124/82; PULSE 71; RESP 11
[2024-10-03 02:30] VITALS: BP 111/58; PULSE 52; RESP 19; O2SAT 98
--- NOTE | 2024-10-03 02:30 | ED_ITS ---
HPI - Chest Pain General Chief Complaint: Chest Pain Stated Complaint: chest pain,dizziness,weakness Time Seen by Provider: 10/03/24 01:18 Source: patient Mode of arrival: Ambulatory History of Present Illness HPI narrative: 24-year-old male with anterior chest pain, dizziness, generalized weakness, recent cough. No fevers or chills. No injury trauma or new activities. Feels anxious. Not currently taking any antibiotics. Related Data Previous Rx's ?Medication ?Instructions ?Recorded metoclopramide HCl 10 mg tablet 10 mg PO Q6H PRN nause a and 11/29/21 (Reglan) vomiting #20 tabs metoclopramide HCl 10 mg tablet 10 mg PO Q6H PRN nause a and 02/20/24 vomiting #30 tabs omeprazole 40 mg capsule,delayed 40 mg PO DAILY #30 ca ps 02/20/24 release promethazine 25 mg tablet 25 mg PO TID PRN nausea and 02/20/24 vomiting #30 tabs amoxicillin 875 mg-potassium 1 tab PO BID #10 tabs 12/18 clavulanate 125 mg tablet meloxicam 15 mg tablet 15 mg PO DAILY #30 tabs 03/01/18 oxycodone 5 mg tablet 5 mg PO Q8H PRN pain, severe #7 07/02/24 tabs tizanidine 2 mg tablet 2 mg PO Q8H PRN muscle spast icity 07/02/24 or pain #90 tabs doxycycline hyclate 100 mg capsule 100 mg PO BID #20 c aps 10/03/24 Allergies Allergy/AdvReac Type Severity Reaction Status Date / Time No Known Drug Allergies Allergy Verified 10/03/24 00:35 Patient History Social History details: lives with parents household members: family Smoking Status: Former smoker substance use type: marijuana Smoking Status: Former smoker tobacco type: cigarettes and vaping alcohol intake frequency: holidays/special occasions only Exam Narrative Exam Narrative: GENERAL: Well-developed patient, in mild distress. HEAD: Atraumatic. Normocephalic. EYES: Pupils equal round and reactive. Extraocular motions intact. No scleral icterus. No injection or drainage. ENT: Nose without bleeding, purulent drainage. Throat without erythema, tonsillar hypertrophy or exudate. Airway patent. NECK: Trachea midline. Non tender CARDIOVASCULAR: Regular rate and rhythm without murmurs, gallops, or rubs. RESPIRATORY: Clear to auscultation. Breath sounds equal bilaterally. No wheezes, rales, or rhonchi. GASTROINTESTINAL: Abdomen soft, non-tender, nondistended. EXTREMITIES: No edema or joint tenderness. BACK: Nontender without deformity or crepitance. No flank tenderness. NEURO: AOx3. Motor functions grossly nonfocal SKIN: No rash or erythema of visible areas Initial Vital Signs Initial Vital Signs: Vital Signs Temperature 97.5 F L 10/03/24 00:33 Pulse Rate 66 10/03/24 00:33 Respiratory Rate 20 10/03/24 00:33 Blood Pressure 147/98 H 10/03/24 00:33 Pulse Oximetry 99 10/03/24 00:33 Oxygen Delivery Method Room Air 10/03/24 00:33 Course Orders Ordered: ED Orders 10/03/24 00:39 XR chest 1V Stat EKG-12 Lead Stat 10/03/24 00:52 Complete Blood Count AUTO DIFF Stat Comprehensive Metabolic Panel Stat Lipase Stat Magnesium Stat NT-proBNP (BNP-Adult 18+) Stat PTT Partial Thromboplastin Ej Stat Prothrombin Time INR Stat Troponin & CK Cardiac Panel Stat Discontinued Medications Al Hydrox/Mg Hydrox/Simethicone (Mag Hydrox/Alum/Simeth 30 Ml Udc) 30 ml PO NOW ONE Stop: 10/03/24 01:19 Last Admin: 10/03/24 02:44 Dose: Not Given Documented By: THIERRY Aspirin (Aspirin 81 Mg Chew Tab) 324 mg PO NOW ONE Stop: 10/03/24 00:39 Last Admin: 10/03/24 02:44 Dose: Not Given Documented By: THIERRY Doxycycline Hyclate (Doxycycline Hyclate 100 Mg Tablet) 100 mg PO NOW ONE Stop: 10/03/24 02:36 Last Admin: 10/03/24 02:43 Dose: 100 mg Documented By: THIERRY Hydroxyzine HCl (Hydroxyzine Hcl 25 Mg Tablet) 50 mg PO NOW ONE Stop: 10/03/24 02:26 Last Admin: 10/03/24 02:43 Dose: 50 mg Documented By: THIERRY Vital Signs Vital signs: Vital Signs - 8 hr 10/03/24 00:33 10/03/24 02:01 10/03/24 02:01 Temperature 97.5 F L Pulse Rate 66 71 Respiratory Rate 20 11 L Blood Pressure 147/98 H 124/82 Pulse Oximetry 99 Oxygen Delivery Method Room Air 10/03/24 02:30 10/03/24 02:30 10/03/24 03:00 Temperature Pulse Rate 52 L 53 L Respiratory Rate 19 13 Blood Pressure 111/58 L Pulse Oximetry 98 98 Oxygen Delivery Method 10/03/24 03:00 10/03/24 03:30 10/03/24 03:30 Temperature Pulse Rate 49 L Respiratory Rate 17 Blood Pressure 116/78 112/71 Pulse Oximetry 97 Oxygen Delivery Method Room Air MDM - Chest Pain Lab Data Attestation: I reviewed the patient's lab results. Lab results narrative: White blood cell count 9900, hemoglobin 14, platelets adequate. Glucose 98. Normal renal function. Electrolytes unremarkable. Serum CO2 normal. Liver functions and lipase normal. BNP normal. Troponin negative/unmeasurable. 10/03/24 00:52 10/03/24 00:52 Labs: Lab Results 10/03/24 Range/Units 00:52 WBC 9.9 (4.5-11.0) X10^3/uL RBC 4.35 L (4.5-5.9) X10^6/uL Hgb 14.1 (13.5-17.5) g/dL Hct 39.9 L (41-53) % MCV 91.8 (80-100) fL MCH 32.4 (26-34) PG MCHC 35.3 (30-36) % RDW 13.4 (11.6-14.8) % Plt Count 168 (150-400) X10^3/uL Neut % (Auto) 57.0 (50-75) % Lymph % (Auto) 30.3 (25-40) % [place] % (Auto) 9.0 (3-14) % Eos % (Auto) 2.8 (2-4) % Baso % (Auto) 0.9 (0-2) % Neut # (Auto) 5700 (6532-6502) /uL Lymph # (Auto) 3000 (4120-4069) /uL [place] # (Auto) 900 (0-900) /uL Eos # (Auto) 300 (0-450) /uL Baso # (Auto) 100 (0-100) /uL PT 13.0 H (9.4-12.5) SECONDS INR 1.1 (0.9-1.3) APTT 35 (25.1-36.5) SECONDS Sodium 141 (137-145) mmol/L Potassium 3.4 (3.4-5.1) mmol/L Chloride 105 (98-107) mmol/L Carbon Dioxide 26 (22-32) mmol/L BUN 13 (9-20) mg/dL Creatinine 0.75 (0.66-1.25) mg/dL Estimated GFR > 60 (>60) mL/min BUN/Creatinine Ratio 17.3 (6-22) Glucose 98 (70-99) mg/dL Calcium 9.5 (8.4-10.2) mg/dL Magnesium 1.8 (1.6-2.3) mg/dL Total Bilirubin 1.1 (0.2-1.3) mg/dL AST 26 (17-59) IU/L ALT 17 (<50) IU/L Alkaline Phosphatase 74 (38-126) U/L Total Creatine Kinase 228 H (55-170) U/L Troponin I < 0.012 (0.01-0.034) ng/mL NT-Pro-B Natriuret Pep 25 (<125) pg/mL Total Protein 7.1 (6.3-8.2) g/dL Albumin 4.6 (3.5-5.0) g/dL Globulin 2.5 (1.7-4.1) g/dL Albumin/Globulin Ratio 1.8 (1.0-2.8) Lipase 74 (23-300) U/L Imaging Data Chest x-ray: Radiologist's Impression: [place] [address] XRay Report Signed Patient: Byron Contreras MR#: [id number] : 2000 Acct:[id number] Age/Sex: 24 / M Date of Service: 10/03/24 Loc: ED Accession Number: [id number] Procedure: XR chest 1V Ordering Provider: Piotr Black MD PROCEDURE: XR CHEST 1V INDICATIONS: Chest Pain TECHNIQUE: One view of the chest was acquired. COMPARISON: None. FINDINGS: Surgical changes and devices: None. Lungs and pleura: Subtle diffuse opacification over the right upper and middle lung compared to the left. The left lung is clear. Mediastinum: Mediastinal contours appear normal. Heart size is normal. Bones and chest wall: No suspicious bony lesions. Overlying soft tissues appear unremarkable. IMPRESSION: Diffuse right upper and middle lung opacification is nonspecific and may relate to pneumonia, atelectasis, overlying soft tissue density or mass. Clinical correlation recommended and consider chest CT. Dictated by: Michelle Fairchild M.D. on 10/03/2024 at 1:40 Approved by: Michelle Fairchild M.D. on 10/03/2024 at 1:43 ECG Data Attestation: I personally reviewed and interpreted this ECG as follows: Interpretation: Sinus bradycardia with rate of 56. No obvious ST segment elevation or depression changes. GA 120, QRS 90, QTC 405. MDM Narrative Medical decision making narrative: 25-year-old male with cough and generalized weakness, normal oxygenation, feels anxious. Chest x-ray suspicious for right-sided infiltrate, oral doxycycline given, oral doxycycline prescription sent to his pharmacy. Encouraged to drink plenty of fluids, take anti fever medications is needed, [id number] analgesics as needed. Recheck with PCP in the next couple of days if not improving. Discharged home. Return precautions discussed. Discharge Plan Departure Patient Disposition: Home Clinical Impression: Pneumonia Activity Restrictions/Additional Instructions: Chest discomfort. On x-ray Radiology report described concern about right-sided infiltrate possible pneumonia. Oral doxycycline antibiotic given, prescription antibiotic sent to your pharmacy, take antibiotics as directed. Recheck lung exam and symptoms with your regular doctor in the next 2 or 3 days. Return earlier to this/nearest emergency department for any change worsening symptoms or any concerns prior. Prescriptions: New doxycycline hyclate 100 mg capsule 100 mg PO BID Qty: 20 0RF No Action metoclopramide HCl [Reglan] 10 mg tablet 10 mg PO Q6H PRN (Reason: nausea and vomiting) Qty: 20 0RF omeprazole 40 mg capsule,delayed release(DR/EC) 40 mg PO DAILY Qty: 30 0RF metoclopramide HCl 10 mg tablet 10 mg PO Q6H PRN (Reason: nausea and vomiting) Qty: 30 0RF promethazine 25 mg tablet 25 mg PO TID PRN (Reason: nausea and vomiting) Qty: 30 0RF amoxicillin-pot clavulanate 875-125 mg tablet 1 tab PO BID Qty: 10 0RF tizanidine 2 mg tablet 2 mg PO Q8H PRN (Reason: muscle spasticity or pain) Qty: 90 0RF meloxicam 15 mg tablet 15 mg PO DAILY Qty: 30 0RF oxycodone 5 mg tablet 5 mg PO Q8H PRN (Reason: pain, severe) Qty: 7 0RF Stand Alone Forms: Patient Portal/API
[2024-10-03] MEDS: hydrOXYzine HCL 25 MG TABLET 50 MG PO (02:43)
[2024-10-03] MEDS: DOXYCYCLINE HYCLATE 100 MG TABLET PO (02:43)
[2024-10-03 03:00] VITALS: BP 116/78; PULSE 53; RESP 13; O2SAT 98
[2024-10-03 03:30] VITALS: BP 112/71; PULSE 49; RESP 17; O2SAT 97
--- NOTE | 2024-10-03 03:52 | PC.NURSE ---
Unable to perform cardiac assessment d/t increased pt agitation. Pt offers he is high as shit and experiencing high anxiety. Pt keeps rambling about marital problems between his parents and how that impacts his quality of life. An attempt was made to redirect pt, but pt's girlfriend who was on speaker over the phone chimes in and says all you people just keep treating and talking to him like he is stupid. Pt is dishevel, in flip flops, shorts, shirtless and not making eye contact, inquiring if the cold air will worsen his pneumonia because he does not give a shit and shirts feel weird. Pt advised it is best to wear proper clothing suitable to outside temperature and weather and to take his prescribed antibiotics start to finish. Pt proceeds to yell at this RN, stating I need some of that good shit so I can go to sleep. This RN advised pt to follow up w/his PCP with any further concerns. aware, weigh and charge worker notified.
== END 2024-10-03 04:04 | disposition home or self-care (01) ==
PROVIDERS: Emergency Provider Emergency Medicine
DX: J18.9 Pneumonia, unspecified organism (principal)
CPT/HCPCS: 36415; 71045; 80053; 82550; 83690; 83735; 83880; 84484; 85025; 85610; 85730; 93005; 99284; A9270

== ENCOUNTER 2025-01-24 13:49 | Emergency (ER) | payer OTHER, SELFPAY | END 2025-01-24 15:30 | disposition left against medical advice (07) | PROVIDERS: Emergency Provider Emergency Medicine ==